=== PATIENT | male | born 1935 | race Caucasian/White ===

== ENCOUNTER 2022-06-26 09:42 | Outpatient (CLI) | payer OTHER | END 2022-06-26 09:43 | disposition EMS.NT | LOC: MERGE 09:42 → EMS 09:42 | DX: R03.0 Elevated blood-pressure reading, without diagnosis of hypertension (principal) ==

== ENCOUNTER 2022-07-01 17:05 | Outpatient (CLI) | payer MEDICARE | END 2022-07-01 17:06 | disposition critical access hospital (66) | LOC: EMS 17:05 | DX: R41.0 Disorientation, unspecified (principal); R53.83 Other fatigue; R53.1 Weakness; R11.2 Nausea with vomiting, unspecified | CPT/HCPCS: A0425; A0429 ==

== ENCOUNTER 2022-07-01 17:11 | Emergency (ER) | payer MEDICARE ==
[2022-07-01 17:42] LABS: BASOPHILS # (AUTO) 0.1 10^3/uL (0.0-0.1); BASOPHILS % (AUTO) 0.6 %; EOSINOPHILS # (AUTO) 0.1 10^3/uL (0.0-0.7); EOSINOPHILS % (AUTO) 1.3 %; HCT - HEMATOCRIT 26.2 % (42.0-52.0); HGB - HEMOGLOBIN 8.4 g/dL (14.0-18.0); LYMPHOCYTES # (AUTO) 0.7 10^3/uL (1.5-3.5); LYMPHOCYTES % (AUTO) 7.5 %; MEAN CORPUSCULAR HEMOGLOBIN 28.8 pg (27.0-31.0); MEAN CORPUSCULAR HGB CONC 32.1 g/dL (32.0-36.0); MEAN CORPUSCULAR VOLUME 89.7 fL (80.0-94.0); MEAN PLATELET VOLUME 10.8 fL (7.4-11.4); MONOCYTES # (AUTO) 0.9 10^3/uL (0.0-1.0); MONOCYTES % (AUTO) 10.2 %; NEUTROPHILS % (AUTO) 80.1 %; PLT - PLATELET COUNT 293 10^3/uL (130-450); RED BLOOD COUNT 2.92 10^6/uL (4.70-6.10); RED CELL DISTRIBUTION WIDTH 13.5 % (12.0-15.0); WHITE BLOOD COUNT 8.7 x10^3/uL (4.8-10.8)
--- NOTE | 2022-07-01 17:57 | ED Physician Documentation ---
History of Present Illness - Stated complaint Stated Complaint: WEAKNESS - Chief complaint Chief Complaint: Neuro - History obtained from History obtained from: Family, EMS - History of Present Illness Timing: How many days ago (12) Pain level max: 0 Pain level now: 0 - Additonal information Additional information: Patient is an 87-year-old male who is brought in by EMS and his family for altered mental status for the past 12 days. He reportedly fell on June 19, sustained a hip fracture and struck his head on the ground. Family states that they do not believe a head CT was performed. They state that he underwent a pinning of the right hip. They state that he has had intermittent confusion ever since the surgery. Waxing and waning mental status. No further falls that they are aware of. Review of Systems Unable to obtain: [place] PD PAST MEDICAL HISTORY - Past Medical History Past Medical History: Yes Other Past Medical History: bradycardia - Past Surgical History Past Surgical History: Yes Ortho: Other (R hip pinning) Cardiovascular: Pacemaker - Allergies Allergies/Adverse Reactions: Allergies Allergy/AdvReac Type Severity Reaction Status Date / Time No Known Drug Allergies Allergy Verified 07/01/22 17:22 PD ED PE NORMAL - Vitals Vital signs reviewed: Yes - General General: No acute distress, Well developed/nourished, Other (drowsy, arousable) - HEENT HEENT: Atraumatic, PERRL, Moist mucous membranes - Neck Neck: Supple, no meningeal sign, No bony TTP - Cardiac Cardiac: RRR, Strong equal pulses - Respiratory Respiratory: No respiratory distress, Clear bilaterally - Abdomen Abdomen: Soft, Non tender, Non distended - Back Back: No spinal TTP - Derm Derm: Warm and dry - Extremities Extremities: No edema, No calf tenderness / cord, Other (well healing incision to the R hip. no signs of infection.) - Neuro Neuro: Other (drowsy) Results - Vitals Vitals: Vital Signs - 24 hr 07/01/22 07/01/22 07/01/22 17:22 17:55 19:25 Temperature 36.4 C L Heart Rate 55 L 50 L 66 Respiratory 18 21 18 Rate Blood Pressure 177/69 H 160/64 H 160/102 H O2 Saturation 98 98 99 07/01/22 07/01/22 19:55 20:25 Temperature Heart Rate 66 66 Respiratory 18 18 Rate Blood Pressure 162/91 H 161/66 H O2 Saturation 99 100 Oxygen O2 Source Room air - EKG (time done) 1910 Rate: Rate (enter#) (66) Rhythm: NSR [place]: Normal Intervals: Prolonged [place] QRS: Normal Ischemia: Normal ST segments - Labs Labs: Laboratory Tests 07/01/22 07/01/22 07/01/22 17:37 17:37 17:50 WBC 8.7 RBC 2.92 L Hgb 8.4 L Hct 26.2 L MCV 89.7 MCH 28.8 MCHC 32.1 RDW 13.5 Plt Count 293 MPV 10.8 Neut # (Auto) 7.0 H Lymph # (Auto) 0.7 L [place] # (Auto) 0.9 Eos # (Auto) 0.1 Baso # (Auto) 0.1 Absolute Nucleated RBC 0.00 Nucleated RBC % 0.0 Sodium 125 L Potassium 7.9 H* Chloride 92 L Carbon Dioxide 16 L Anion Gap 17.0 H BUN 125 H* Creatinine 11.3 H* Estimated GFR (MDRD) 4 L Glucose 106 H Calcium 8.1 L Total Bilirubin 0.7 AST 15 ALT 20 Alkaline Phosphatase 67 Total Protein 6.3 L Albumin 3.4 Globulin 2.9 Albumin/Globulin Ratio 1.2 Lipase 36 Urine Color YELLOW Urine Clarity CLEAR Urine pH 6.5 Ur Specific [place] 1.010 Urine Protein NEGATIVE Urine Glucose (UA) NEGATIVE Urine Ketones NEGATIVE Urine Occult Blood NEGATIVE Urine Nitrite NEGATIVE Urine Bilirubin NEGATIVE Urine Urobilinogen 0.2 (NORMAL) Ur Leukocyte Esterase NEGATIVE Ur Microscopic Review NOT INDICATED Urine Culture Comments NOT INDICATED Nasal Adenovirus (PCR) Nasal B. parapertussis DNA (PCR) Nasal Coronavir 229E PCR Nasal Coronavir HKU1 PCR Nasal Coronavir NL63 PCR Nasal Coronavir OC43 PCR Nasal Enterovir/Rhinovir PCR Nasal Influenza B PCR Nasal Influenza A PCR Nasal Parainfluen 1 PCR Nasal Parainfluen 2 PCR Nasal Parainfluen 3 PCR Nasal Parainfluen 4 PCR Nasal RSV (PCR) Nasal B.pertussis DNA PCR Nasal C.pneumoniae (PCR) Janusz Human Metapneumo PCR Nasal M.pneumoniae (PCR) Nasal SARS-CoV-2 (PCR) 07/01/22 07/01/22 18:10 21:16 WBC RBC Hgb Hct MCV MCH MCHC RDW Plt Count MPV Neut # (Auto) Lymph # (Auto) [place] # (Auto) Eos # (Auto) Baso # (Auto) Absolute Nucleated RBC Nucleated RBC % Sodium 127 L Potassium 5.9 H Chloride 99 L Carbon Dioxide 17 L Anion Gap 11.0 BUN 101 H* Creatinine 8.9 H* Estimated GFR (MDRD) 6 L Glucose 109 H Calcium 8.2 L Total Bilirubin AST ALT Alkaline Phosphatase Total Protein Albumin Globulin Albumin/Globulin Ratio Lipase Urine Color Urine Clarity Urine pH Ur Specific [place] Urine Protein Urine Glucose (UA) Urine Ketones Urine Occult Blood Urine Nitrite Urine Bilirubin Urine Urobilinogen Ur Leukocyte Esterase Ur Microscopic Review Urine Culture Comments Nasal Adenovirus (PCR) NOT DETECTED Nasal B. parapertussis DNA (PCR) NOT DETECTED Nasal Coronavir 229E PCR NOT DETECTED Nasal Coronavir HKU1 PCR NOT DETECTED Nasal Coronavir NL63 PCR NOT DETECTED Nasal Coronavir OC43 PCR NOT DETECTED Nasal Enterovir/Rhinovir PCR NOT DETECTED Nasal Influenza B PCR NOT DETECTED Nasal Influenza A PCR NOT DETECTED Nasal Parainfluen 1 PCR NOT DETECTED Nasal Parainfluen 2 PCR NOT DETECTED Nasal Parainfluen 3 PCR NOT DETECTED Nasal Parainfluen 4 PCR NOT DETECTED Nasal RSV (PCR) NOT DETECTED Nasal B.pertussis DNA PCR NOT DETECTED Nasal C.pneumoniae (PCR) NOT DETECTED Janusz Human Metapneumo PCR NOT DETECTED Nasal M.pneumoniae (PCR) NOT DETECTED Nasal SARS-CoV-2 (PCR) NOT DETECTED - Rads (name of study) head ct Radiology: Final report received, See rad report abd/pel ct Radiology: Final report received, See rad report PD Medical Decision Making - ED course Complexity details: reviewed results, re-evaluated patient, considered differential, d/w patient, d/w family ED course: Patient had a significant amount of urinary retention. A Soares catheter was placed and approximately 2 L of urine were drained. Found to have of acute renal failure and uremia. Also hyperkalemic. No EKG changes. Abdomen pelvis CT does show a left-sided hydronephrosis, but no significant abnormalities otherwise. This was done noncontrast due to his renal function. The patient was started on IV fluids as well. His mental status significantly improved. He is awake, talking and the daughter states he is much more like himself. Repeat laboratory testing shows a downtrending creatinine, downtrending BUN and downtrending potassium. There are no beds available in the hospital here. There are no beds available for transfer. It does appear that he had a creatinine on June 22 that was normal at 0.7. Likely that the urinary obstruction led to the renal failure, expect that this will improve now that the obstruction is relieved. We will keep the patient in the emergency department on IV fluids and continue care on telemetry inpatient bed is found where he improves well enough to go home. Patient signed out to the oncoming emergency department physician. His recent postop wound on the right hip does not appear infected. This document was made in part using voice recognition software. While efforts are made to proofread this document, sound alike and grammatical errors may occur. Departure - Departure Clinical Impression: Uremia, Hyperkalemia, Urinary obstruction Acute renal failure Qualifiers: Acute renal failure type: unspecified Qualified Code(s): N17.9 - Acute kidney failure, unspecified Condition: Stable
[2022-07-01 18:01] LABS: BILIRUBIN,URINE NEGATIVE (NEGATIVE); GLUCOSE, URINE (UA) NEGATIVE (NEGATIVE); KETONES,URINE (UA) NEGATIVE (NEGATIVE); LEUKOCYTE ESTERASE, URINE NEGATIVE (NEGATIVE); NITRITE,URINE NEGATIVE (NEGATIVE); OCCULT BLOOD,URINE NEGATIVE (NEGATIVE); PH,URINE 6.5 PH (5.0-7.5); PROTEIN,URINE NEGATIVE (NEGATIVE); UROBILINOGEN,URINE 0.2 (NORMAL) E.U./dL (NORMAL)
[2022-07-01 18:14] LABS: ALBUMIN 3.4 g/dL (3.2-5.5); ALBUMIN/GLOBULIN RATIO 1.2 (1.0-2.2); BILIRUBIN,TOTAL 0.7 mg/dL (0.2-1.0); CALCIUM 8.1 mg/dL (8.5-10.3); TOTAL PROTEIN 6.3 g/dL (6.7-8.2)
[2022-07-01 18:17] LABS: CLARITY,URINE CLEAR (CLEAR)
[2022-07-01 18:18] LABS: CREATININE 11.3 mg/dL (0.6-1.2); POTASSIUM 7.9 mmol/L (3.5-5.0)
[2022-07-01] MEDS ORDERED: DEXTROSE 50% ABBOJECT 25 GM/50 ML SYRINGE IVP STA (18:21)
[2022-07-01] MEDS ORDERED: INSULIN REGULAR HUMAN 100 UNIT/1 ML 10 ML MDV SUBQ STA (18:21)
[2022-07-01] MEDS ORDERED: SODIUM CHLORIDE 0.9% 1,000 ML IV STA ×3 (18:22)
[2022-07-01] MEDS ORDERED: SODIUM CHLORIDE 0.9% 500 ML IV STA (18:22)
--- NOTE | 2022-07-01 18:37 | CT Report ---
PROCEDURE: HEAD WO INDICATIONS: fall, head injury 2 weeks ago, cont aloc TECHNIQUE: Noncontrast 4.5 mm thick angled axial sections acquired from the foramen magnum to the vertex. For r adiation dose reduction, the following was used: automated exposure control, adjustment of mA and/or kV according to patient size. COMPARISON: None. FINDINGS: Image quality: Good. CSF spaces: Basal cisterns are patent. No extra-axial fluid collections. Lateral ventricles are enl arged. Brain: No midline shift. No intracranial masses or hemorrhage. Basal ganglia calcifications. No are a of hypodensity in a vascular distribution to suggest acute infarction. There is periventricular hyp odensity consistent with chronic microvascular ischemic disease. Skull and face: Calvarium and visualized facial bones are intact, without suspicious lesions. Sinuses: Visualized sinuses and mastoids are clear. IMPRESSION: No acute intracranial hemorrhage. Lateral ventricles are enlarged. Chronic microvascular ischemic disease. Reviewed by: Yariel Henao MD on 07/01/2022 6:36 PM PST Approved by: Yariel Henao MD on 07/01/2022 6:36 PM PST Station ID: [id number]
--- NOTE | 2022-07-01 19:45 | CT Report ---
PROCEDURE: ABDOMEN/PELVIS WO INDICATIONS: urinary retention, acute renal failure TECHNIQUE: Noncontrast 5 mm thick sections acquired from the diaphragms to the symphysis. 5 mm coronal and sagi ttal reformats were then performed. For radiation dose reduction, the following was used: automated exposure control, adjustment of mA and/or kV according to patient size. COMPARISON: FINDINGS: None. Image quality: Excellent. Evaluation of the solid parenchymal organs is limited without IV contrast . ABDOMEN: Lung bases: Small bilateral pleural effusions. Pacemaker leads. Solid organs: Liver and spleen are normal in size. Gallbladder is unremarkable. Pancreas is normal in contours. No adrenal nodules. Kidneys are normal in size. No kidney stones demonstrated. Mild l eft hydronephrosis. Peritoneum and bowel: No small bowel obstruction. Prominent stool the colon. Normal appendix. No free fluid or air. Nodes and vessels: No retroperitoneal or mesenteric adenopathy by size criteria. Aorta and inferior vena cava are normal in caliber. Moderate calcified plaque. Miscellaneous: No ventral hernias. PELVIS: Genitourinary: Bladder is decompressed with Soares catheter. Calcification near the Soares catheter at the prostatic urethra measuring 2 mm, (3/80). Miscellaneous: No inguinal hernias or adenopathy. Bones: No suspicious bony lesions. Right hip fixation. No vertebral body compression fractures. IMPRESSION: 1. Mild left kidney hydronephrosis. 2. No kidney stones. 3. Bladder is decompressed with Soares catheter. There is a 2 mm calcification adjacent to the Soares c atheter at the prostatic urethra. It is uncertain if this is within the urethra or prostate. Clinical significance is uncertain. 4. Small bilateral pleural effusions. Reviewed by: Yariel Henao MD on 07/01/2022 7:44 PM PST Approved by: Yariel Henao MD on 07/01/2022 7:44 PM PST Station ID: [id number]
[2022-07-01 20:38] LABS: B. PARAPERTUSSIS- RESP PCR PAN NOT DETECTED; B. PERTUSSIS- RESP PCR PANEL NOT DETECTED; C. PNEUMONIAE- RESP PCR PANEL NOT DETECTED; CORONAVIRUS 229E-RESP PCR NOT DETECTED; CORONAVIRUS HKU1-RESP PCR NOT DETECTED; CORONAVIRUS NL63-RESP PCR NOT DETECTED; CORONAVIRUS OC43-RESP PCR NOT DETECTED; HUMAN METAPNEUMOVIRUS NOT DETECTED; INFLUENZA A- RESP PCR PANEL NOT DETECTED; INFLUENZA B - RESP PCR PANEL NOT DETECTED; M. PNEUMONIAE- RESP PCR PANEL NOT DETECTED; PARAINFLUENZA VIRUS 1 NOT DETECTED; PARAINFLUENZA VIRUS 2 NOT DETECTED; PARAINFLUENZA VIRUS 3 NOT DETECTED; PARAINFLUENZA VIRUS 4 NOT DETECTED; RHINOVIRUS/ENTEROVIRUS NOT DETECTED; RSV- RESP PCR PANEL NOT DETECTED; SARS-CoV-2 -RESP PCR PANEL NOT DETECTED
[2022-07-01 22:04] LABS: CALCIUM 8.2 mg/dL (8.5-10.3); POTASSIUM 5.9 mmol/L (3.5-5.0)
[2022-07-01 22:06] LABS: CREATININE 8.9 mg/dL (0.6-1.2)
[2022-07-02] MEDS ORDERED: ACETAMINOPHEN 500 MG TABLET PO PRN (04:26)
[2022-07-02] MEDS ORDERED: ONDANSETRON 4 MG/2 ML VIAL IVP PRN (04:26)
[2022-07-02] MEDS: SODIUM CHLORIDE 0.9% 1,000 ML IV SCH ×2 (05:11→13:03)
[2022-07-02 05:18] LABS: BASOPHILS % (AUTO) 0.4 %; EOSINOPHILS # (AUTO) 0.1 10^3/uL (0.0-0.7); EOSINOPHILS % (AUTO) 1.8 %; HCT - HEMATOCRIT 24.4 % (42.0-52.0); HGB - HEMOGLOBIN 8.1 g/dL (14.0-18.0); LYMPHOCYTES # (AUTO) 0.8 10^3/uL (1.5-3.5); LYMPHOCYTES % (AUTO) 11.1 %; MEAN CORPUSCULAR HEMOGLOBIN 29.2 pg (27.0-31.0); MEAN CORPUSCULAR HGB CONC 33.2 g/dL (32.0-36.0); MEAN CORPUSCULAR VOLUME 88.1 fL (80.0-94.0); MEAN PLATELET VOLUME 9.8 fL (7.4-11.4); MONOCYTES # (AUTO) 0.8 10^3/uL (0.0-1.0); MONOCYTES % (AUTO) 10.5 %; NEUTROPHILS # (AUTO) 5.4 10^3/uL (1.5-6.6); NEUTROPHILS % (AUTO) 75.9 %; PLT - PLATELET COUNT 304 10^3/uL (130-450); RED BLOOD COUNT 2.77 10^6/uL (4.70-6.10); RED CELL DISTRIBUTION WIDTH 13.6 % (12.0-15.0); WHITE BLOOD COUNT 7.1 x10^3/uL (4.8-10.8)
[2022-07-02 05:29] LABS: CALCIUM 8.7 mg/dL (8.5-10.3); CREATININE 5.1 mg/dL (0.6-1.2); POTASSIUM 5.2 mmol/L (3.5-5.0)
[2022-07-02] MEDS ORDERED: PANTOPRAZOLE 40 MG TABLET PO SCH (07:00)
--- NOTE | 2022-07-02 08:24 | ED Physician Documentation ---
ED Addendum - Addendum Addendum: 07/02/22 08:[address] Perez at shift change. 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 Now with a Soares in place he is getting IV fluids and drinking, his creatinine is rapidly improving. At this point not quite good enough to go home with a catheter in place but may be this afternoon. He is quite uncomfortable, he had a recent hip fracture and now is on a gurney so we will get him a hospital bed his who is at the bedside really does not want him to have anything stronger than Tylenol as when he had his recent hip surgery all narcotics seem to make him delusional. 07/02/22 14:00 At this juncture his indices have improved significantly, and he is drinking fluids. He is eager for discharge as is his . They were counseled on Soares care and the need for urologic follow-up and for easy access to oral fluids and pushing oral fluids. Disposition: Discharged home Condition: Stable Diagnosis: 1. Obstructive uropathy 2. Acute renal failure 3. Hyperkalemia
[2022-07-02 13:27] VITALS: BP 146/90
[2022-07-02 13:43] LABS: CALCIUM 8.5 mg/dL (8.5-10.3); CREATININE 3.7 mg/dL (0.6-1.2); POTASSIUM 5.1 mmol/L (3.5-5.0)
== END 2022-07-02 14:39 | disposition home or self-care (01) ==
LOC: ED 17:11
DX: N17.9 Acute kidney failure, unspecified (principal); N13.30 Unspecified hydronephrosis; E87.5 Hyperkalemia; Z20.822 Contact with and (suspected) exposure to COVID-19
CPT/HCPCS: 36415; 70450; 74176; 80048; 80053; 81003; 83690; 85025; 87633; 93005; 96361; 96374; 99281; 99284; A9270; J1815; 81001; 87086

== ENCOUNTER 2022-07-03 13:33 | Outpatient (CLI) | payer MEDICARE | END 2022-07-03 13:34 | disposition critical access hospital (66) | LOC: EMS 13:33 | DX: T83.9XXA Unspecified complication of genitourinary prosthetic device, implant and graft, initial encounter (principal) | CPT/HCPCS: A0425; A0429 ==

== ENCOUNTER 2022-07-03 13:44 | Emergency (ER) | payer MEDICARE ==
[2022-07-03 13:50] VITALS: BP 154/79
--- NOTE | 2022-07-03 13:54 | ED Physician Documentation ---
PD HPI ABD PAIN - Stated complaint Stated Complaint: ZIMMER OUT - Chief complaint Chief Complaint: Abd Pain - History obtained from History obtained from: Patient - Additional information Additional information: 87-year-old gentleman recently had acute urinary retention and had a Zimmer placed. Zimmer output dropped suddenly an hour ago and he presents for evaluation of that. He has no complaints. Review of Systems Unable to obtain: D[facility] PD PAST MEDICAL HISTORY - Past Surgical History Past Surgical History: Yes Ortho: Other (R hip pinning) Cardiovascular: Pacemaker - Present Medications Home Medications: Ambulatory Orders Medication Instructions Recorded Confirmed Aspirin [Vazalore] 81 mg PO BID 07/02/22 07/02/22 Famotidine 40 mg PO DAILY 07/02/22 07/02/22 - Allergies Allergies/Adverse Reactions: Allergies Allergy/AdvReac Type Severity Reaction Status Date / Time No Known Drug Allergies Allergy Verified 07/03/22 13:49 PD ED PE NORMAL - Vitals Vital signs reviewed: Yes - General General: Other (He is confused but I had seen him yesterday and he was confused yesterday.) - Abdomen Abdomen: Normal bowel sounds, Soft, Non tender - Male Male : Other (Zimmer in place with no output in the bag. I flushed it with sterile saline and there was a small clot that dislodged and then the Zimmer flowed freely.) - Extremities Extremities: No edema - Neuro Verbal: Confused Results - Vitals Vitals: Vital Signs - 24 hr 07/03/22 13:46 Temperature 36.1 C L Heart Rate 60 Respiratory 16 Rate Blood Pressure 154/79 H O2 Saturation 98 Oxygen O2 Source Room air PD Medical Decision Making - ED course ED course: 87-year-old gentleman with recent urinary obstruction presents with a blocked Zimmer catheter. I irrigated it at bedside and then a small clot was dislodged and then it was flowing freely. Departure - Departure Disposition: 01 Home, Self Care Clinical Impression: Complication, blocked Zimmer catheter Condition: Good Record reviewed to determine appropriate education?: Yes Instructions: ED Catheter Care Zimmer Comments: There was a small clot in the catheter, I was able to flush this clear and the Zimmer is working again. Return for new or worsening symptoms. Otherwise follow the follow-up instructions given yesterday. Discharge Date/Time: 07/03/22 14:15
== END 2022-07-03 14:15 | disposition home or self-care (01) ==
LOC: EDUNIT# → ED 13:44
DX: R33.9 Retention of urine, unspecified (principal); T83.091A Other mechanical complication of indwelling urethral catheter, initial encounter
CPT/HCPCS: 99282; 99283

== ENCOUNTER 2024-08-10 12:27 | Inpatient (IN) ==
--- NOTE | 2024-08-10 12:31 | ED Physician Documentation ---
History of Present Illness Stated complaint Stated Complaint: HIP/KNEE PX, GLF Chief complaint Chief Complaint: Trauma Ext History obtained from History obtained from: Patient and EMS Additonal information Additional information: This is a very healthy for age 89-year-old gentleman who fell a few days ago onto his left hip. He was walking and bearing weight but it is much worse today and he cannot walk now. No other injuries. Meds/Allgy Home Medications Ambulatory Orders Medication Instructions Recorded Confirmed aspirin 81 mg capsule (Vazalore) 81 mg PO BID 07/02/22 07/02/22 famotidine 40 mg tablet 40 mg PO DAILY 07/02/22 07/02/22 Allergies Allergies Allergy/AdvReac Type Severity Reaction Status Date / Time No Known Drug Allergies Allergy Verified 08/10/24 12:36 [facility] Medical History Medical History (Updated 08/10/24 @ 14:10 by Himanshu Mujica DNP) Hypertension Social History Social History Relationship: Do you feel safe in your home environment?: Yes Suffered physical, verbal, emotional, or financial abuse?: No Exam Constitutional normal general appearance and no apparent distress Neck/C-Spine cervical spine nontender and cervical full ROM noted Respiratory normal respiratory effort and clear to auscultation bilaterally Cardiovascular normal heart rate noted and regular rhythm noted Gastrointestinal abdomen soft to palpation and nontender to palpation Extremities He is holding the hip flexed and externally rotated. He is exquisitely tender about the left hip and has severe pain with internal and external rotation. Neurology GCS 15 Results Vitals Vitals: Vital Signs - 24 hr 08/10/24 12:36 08/10/24 12:51 08/10/24 12:54 Temperature 36.8 C Temperature Source Tympanic Pulse Rate 72 67 Respiratory Rate 18 18 Blood Pressure 152/80 H 153/71 H O2 Saturation 98 97 O2 Source Room air Room air Pain Intensity 8 6 6 Oxygen O2 Source Room air EKG (time done) 1258: EKG releavant findings:: EKG personally interpreted by author of this note. Relevant findings are: Normal sinus rhythm with a rate of 66. He does have a very long NC interval (376 ms) with peaked T waves throughout and inferior Q waves. Compared with most recent prior EKG on the chart, 07/01/2022, Q waves are old, the T waves are similar but have progressed. Labs Labs: Laboratory Tests 08/10/24 08/10/24 12:40 13:12 WBC 10.5 RBC 4.15 L Hgb 12.3 L Hct 37.9 L MCV 91.3 MCH 29.6 MCHC 32.5 RDW 13.0 Plt Count 146 MPV 11.6 H Neut # (Auto) 8.6 H Lymph # (Auto) 0.6 L [place] # (Auto) 1.2 H Eos # (Auto) 0.1 Baso # (Auto) 0.0 Absolute Nucleated RBC 0.00 Nucleated RBC % 0.0 PT 14.6 H INR 1.4 H Sodium 134 L Potassium 5.0 H Chloride 106 Carbon Dioxide 22 Anion Gap 6.0 BUN 40 H Creatinine 1.2 Estimated GFR (MDRD) 57 L Glucose 128 H Calcium 8.8 Total Bilirubin 1.1 H AST 28 ALT 16 Alkaline Phosphatase 48 Total Protein 7.1 Albumin 4.0 Globulin 3.1 Albumin/Globulin Ratio 1.3 Blood Type A NEGATIVE Blood Type Recheck A NEGATIVE Antibody Screen NEGATIVE PD Medical Decision Making ED course ED course: 89-year-old gentleman fell a few days ago onto his left hip and it hurts a lot more today and he cannot walk. He has femoral neck fracture on x-ray. Spoke with Dr. Maciel and he will see the patient and plan for operative repair. Requests a CT for operative planning and this is ordered. Spoke with ZARA Mujica for admission at 1:05 PM. He was medicated here with Dilaudid. The patient and family are counseled as to the diagnosis and need for admission. This document was made in part using voice recognition software, while efforts are made to proofread this document, sound alike an grammatical errors may occur. Discharge Plan Discharge Patient Disposition: 66 [facility] DC/Xfer Condition: Serious Clinical Impression: Closed fracture of left hip Qualifiers: Encounter type: initial encounter Qualified Code(s): S72.002A - Fracture of unspecified part of neck of left femur, initial encounter for closed fracture Interventions: ED Admission Assessment Last Done: 08/10/24 14:35
[2024-08-10 12:46] LABS: BASOPHILS % (AUTO) 0.3 %; EOSINOPHILS # (AUTO) 0.1 10^3/uL (0.0-0.7); EOSINOPHILS % (AUTO) 0.6 %; HCT - HEMATOCRIT 37.9 % (42.0-52.0); HGB - HEMOGLOBIN 12.3 g/dL (14.0-18.0); LYMPHOCYTES # (AUTO) 0.6 10^3/uL (1.5-3.5); LYMPHOCYTES % (AUTO) 5.3 %; MEAN CORPUSCULAR HEMOGLOBIN 29.6 pg (27.0-31.0); MEAN CORPUSCULAR HGB CONC 32.5 g/dL (32.0-36.0); MEAN CORPUSCULAR VOLUME 91.3 fL (80.0-94.0); MEAN PLATELET VOLUME 11.6 fL (7.4-11.4); MONOCYTES # (AUTO) 1.2 10^3/uL (0.0-1.0); MONOCYTES % (AUTO) 11.4 %; NEUTROPHILS # (AUTO) 8.6 10^3/uL (1.5-6.6); PLT - PLATELET COUNT 146 10^3/uL (130-450); RED BLOOD COUNT 4.15 10^6/uL (4.70-6.10); WHITE BLOOD COUNT 10.5 x10^3/uL (4.8-10.8)
[2024-08-10 12:52] LABS: INR 1.4 (0.8-1.2); PT - PROTHROMBIN TIME 14.6 secs (9.9-12.6)
[2024-08-10] MEDS: HYDROmorphone 1 MG/ML CARPUJECT IVP STA (12:54)
[2024-08-10 13:19] LABS: ALBUMIN/GLOBULIN RATIO 1.3 (1.0-2.2); BILIRUBIN,TOTAL 1.1 mg/dL (0.2-1.0); CALCIUM 8.8 mg/dL (8.5-10.3); CREATININE 1.2 mg/dL (0.6-1.3); TOTAL PROTEIN 7.1 g/dL (6.4-8.9)
--- NOTE | 2024-08-10 13:46 | XRAY Report ---
PROCEDURE: XR Hip w/Pelvis 2-3V LT INDICATIONS: hip frx TECHNIQUE: An AP view the pelvis and a crosstable lateral view of the hip were acquired. COMPARISON: None. FINDINGS: Bones: Impacted left femoral neck fracture with varus angulation. No dislocation. Right hip orthoped ic hardware. Soft tissues: No suspicious soft tissue calcifications or masses. IMPRESSION: Impacted left femoral neck fracture with varus angulation. Reviewed by: Finn Crisostomo MD on 08/10/2024 1:45 PM PST Approved by: Finn Crisostomo MD on 08/10/2024 1:45 PM PST Station ID: [id number]
[2024-08-10] MEDS: D5.45NS W/20 MEQ KCL 1,000 ML IV STA (14:04)
--- NOTE | 2024-08-10 14:04 | CT Report ---
PROCEDURE: CT Lower Extremity LT WO INDICATIONS: hip frx TECHNIQUE: Noncontrast 3-mm axial sections acquired from the distal tibial shaft to the talar dome, with coronal and sagittal reformats. For radiation dose reduction, the following was used: automated exposure c ontrol, adjustment of mA and/or kV according to patient size. COMPARISON: Pelvic and hip radiograph on the same day. FINDINGS: Image quality: Excellent. Bones: As seen on early left hip radiograph, there is an acute oblique and slightly comminuted fract ure involving subcapital region of left femoral neck with superior and anterior displacement of left proximal femur in relation to femoral head. No other fracture or dislocation is seen. Moderate left h ip joint osteoarthritic changes are noted. No CT evidence of avascular necrosis of femoral head. Visu alized lower lumbar spine shows no acute vertebral body compression fracture. No suspicious bony lesi ons. Soft tissues: There is no pelvic free fluid of free air. No abnormal bowel wall thickening. Bladder wall thickness is normal. No inguinal lymphadenopathy by size criteria. Soft tissue swelling and edema surrounding left femoral neck fracture site is seen. Small to moderate left hip joint effusion, no calcified intra-articular loose bodies. No large soft tissue mass or stefan inable fluid collection. No abnormal soft tissue calcifications. Impression: 1. Slightly comminuted and displaced fracture involving subcapital region of left femoral neck as de scribed above. No other fracture or dislocation. No acute vertebral body compression fracture. 2. Moderate left hip joint osteoarthritis. No evidence of avascular necrosis of femoral head. 3. Soft tissue swelling around left femoral neck fracture site with small amount of left hip joint fl uid. No calcified intra-articular loose bodies or abnormal soft tissue calcifications. No soft tissue mass or drainable fluid collection. No large soft tissue hematoma. 4. No peritoneal free fluid of free air. Reviewed by: Issac Nagel MD on 08/10/2024 2:03 PM PST Approved by: Issac Nagel MD on 08/10/2024 2:03 PM PST Station ID: [id number]
--- NOTE | 2024-08-10 14:06 | HISTORY & PHYSICAL EXAMINATION ---
Chief Complaint Chief Complaint Chief Complaint: Hip pain History of Present Illness Admitted From Admitted From:: Home with History Obtained From History obtained from: Interview with patient and at bedside Exam Limitations: Patient received narcotic pain medicine prior to my arrival History of Present Illness HPI Comment/Other: 89-year-old male with history of hypertension who slipped and fell on the ice a few days ago. He was initially able to walk on it, but cannot walk now. He reports pain and deformity in his left leg. In the ER, lower extremity CT was performed which showed slightly comminuted and displaced fracture in the left femoral neck as well as osteoarthritis and soft tissue swelling. Orthopedic surgery was contacted by ER provider, and they recommended admission to medicine for hip fracture Meds/Allgy Home Medications Ambulatory Orders Medication Instructions Recorded Confirmed aspirin 81 mg capsule (Vaz[place]) 81 mg PO BID 07/02/22 07/02/22 famotidine 40 mg tablet 40 mg PO DAILY 07/02/22 07/02/22 Allergies Allergies Allergy/AdvReac Type Severity Reaction Status Date / Time No Known Drug Allergies Allergy Verified 08/10/24 12:36 [facility] Medical History Medical History (Updated 08/10/24 @ 14:10 by Himanshu Mujica DNP) Hypertension Social History Social History Do you feel safe in your home environment?: Yes Suffered physical, verbal, emotional, or financial abuse?: No Review of Systems Status of ROS: 10 or more systems reviewed and unremarkable except as noted in history and below Constitutional Denies: Fever or Chills Cardiovascular Denies: Irregular heart rate, chest pain, palpitations or shortness of breath with exertion Respiratory Denies: Shortness of breath Gastrointestinal Denies: Abdominal pain Musculoskeletal Reports: Other (Pain in left hip) Neurological Denies: General weakness Exam Constitutional normal general appearance and no apparent distress HENMT normocephalic and head/scalp atraumatic Eyes PERRL Neck/C-Spine visual inspection normal Lymph no lymphadenopathy noted Chest inspection of chest normal Respiratory breath sounds equal bilaterally Cardiovascular normal heart rate noted and murmur noted Gastrointestinal abdomen normal to inspection Genitourinary no CVA tenderness Extremities Left leg shortened Neurology GCS 15 Psychiatry oriented x3 Skin skin color normal Conclusion/Plan Problem List (1) Closed fracture of left hip: Plan: Ortho consulted by ER provider Scheduled Tylenol As needed oxycodone PT/OT N.p.o. after midnight Qualifiers: Encounter type: initial encounter Qualified Code(s): S72.002A - Fracture of unspecified part of neck of left femur, initial encounter for closed fracture (2) Hypertension: Plan: Restart home dose lisinopril after pharmacy review Plan Placed in observation Full code is his surrogate decision maker Lab Results Lab results reviewed: Yes 08/10/24 12:40 08/10/24 12:40 Core Measures Anticipated LOS I expect patient to be DC'd or transferred within 96 hours.: Yes DVT/VTE - Prophylaxis VTE/DVT Prophylaxis med ordered at admit?: Yes
[2024-08-10] MEDS ORDERED: ONDANSETRON 4 MG/2 ML VIAL IVP PRN (14:50)
[2024-08-10] MEDS ORDERED: ONDANSETRON ODT 4 MG TABLET TL PRN (14:50)
[2024-08-10] MEDS: ACETAMINOPHEN 500 MG TABLET PO SCH (15:25)
--- NOTE | 2024-08-10 15:57 | PHARMACY PROGRESS NOTE ---
Best Possible Medication History Admit Date and Time: 08/10/24 1400 Home Medications Medication Instructions Recorded Confirmed Type lisinopril 5 mg tablet 5 mg PO DAILY 08/10/24 08/10/24 History multivitamin (Daily Multi-Vitamin 1 tab PO DAILY 08/10/24 08/10/24 History tablet) Processed by: Pharmacy Medications reviewed in ED?: No Medication History completed: Yes Patient Interview: Completed Secondary Source(s): Spouse/Significant other and Insurance records [facility] Statement: As the person ultimately responsible for medication therapy, providers are able to order a medication from an existing home medication list in [facility] via the "Reconcile Routine" prior to Confirmation of that medication by pc support specialist. Such practice is discouraged except when the physician, in their clinical judgment, deems that a medical need exists for a medication without regard to previous use.
[2024-08-10] MEDS: SODIUM CHLORIDE FLUSH 0.9% 10 ML SYRINGE IVP SCH (18:18)
--- NOTE | 2024-08-10 21:18 | PREOP HISTORY & PHYSICAL ---
Surgical History & Physical Chief Complaint/HPI History of Present Illness: CC: LEFT Hip Femoral Neck Fracture HPI: 89yo M presents to the emergency department on August 10, 2024 for ongoing left hip pain. He reports that he had a slip on ice and sustained a ground-level fall on August 06, 2024 while walking. He had immediate pain however was able to stand up and walk approximately quarter mile back to his house. He had ongoing pain and stiffness and thought he just sprained a muscle. However his hip pain progressed and he then presented to the emergency department. Upon radiographs they demonstrated that he had a left femoral neck fracture that has not displaced. Orthopedics was then consulted. On evaluation he reports minimal left hip pain while at rest. He also has a significant history of having a right inner troches fracture that was fixed with an intramedullary nail. He still has not completely recovered from the right hip fracture and has weakness on the right side. He lives at home with his and is a community ambulator. Home Meds and Allergies Active Medications Generic Name Dose Route Start Last Admin Trade Name Freq PRN Reason Stop Dose Admin Acetaminophen 1,000 mg 08/10/24 14:00 08/10/24 15:25 Acetaminophen 500 Mg Tablet PO 1,000 mg TID [facility] Administration Aspirin 81 mg 08/11/24 09:00 Aspirin Ec 81 Mg Tablet PO DAILY [facility] Enoxaparin Sodium 40 mg 08/12/24 09:00 Enoxaparin 40 Mg/0.4 Ml Syringe SUBQ DAILY [facility] Famotidine 40 mg 08/11/24 09:00 Famotidine 20 Mg Tablet PO DAILY [facility] Ondansetron HCl 4 mg 08/10/24 14:50 Ondansetron Odt 4 Mg Tablet TL Q6HR PRN Nausea / Vomiting Ondansetron HCl 4 mg 08/10/24 14:50 Ondansetron 4 Mg/2 Ml Vial IVP Q6HR PRN Nausea / Vomiting Oxycodone HCl 5 mg 08/10/24 14:50 Oxycodone 5 Mg Tablet PO Q4HR PRN Pain 5 to 7 Sodium Chloride 10 ml 08/10/24 14:50 Sodium Chloride Flush 0.9% 10 Ml Syringe IVP PRN PRN NEEDED PER PROVIDER ORDERS Sodium Chloride 10 ml 08/10/24 17:00 08/10/24 18:18 Sodium Chloride Flush 0.9% 10 Ml Syringe IVP 10 ml 0100,0900,1700 [facility] Administration lisinopril 5 mg tablet 5 mg PO DAILY 08/10/24 multivitamin (Daily Multi-Vitamin tablet) 1 tab PO DAILY 08/10/24 Allergies Allergy/AdvReac Type Severity Reaction Status Date / Time No Known Drug Allergies Allergy Verified 08/10/24 12:36 Vital Signs O2 Saturation: 99 Patient Review Patient Review Pertinent Tests Reviewed [facility] Medical History Medical History (Updated 08/10/24 @ 14:10 by Himanshu Mujica DNP) Hypertension Social History Social History Smoking Status: Former smoker Second hand tobacco smoke exposure: Yes Do you dip or chew tobacco?: No Do you vape?: No Patient requests smoking cessation consult: No Initiate information on smoking cessation: No Relationship: Level: Dependent Home Mobility Equipment: Walker and Wheeled walker Do you feel safe in your home environment?: Yes Suffered physical, verbal, emotional, or financial abuse?: No POLST Patient has POLST: No Exam Exam LEFT Hip: Inspection: No erythema, swelling, bruising, atrophy. ROM: Deferred due to known fracture Neurovascular exam: 11/08 ta/gc/ehl; SILT s/s/sp/dp/t, 2+ dp Imaging: Left hip x-rays on demonstrate a rotated and displaced femoral neck fracture. Assessment & Plan Assessment & Plan Assessment & Plan: PLAN: Admit to medicine Nonweightbearing N.p.o. at midnight Left hip fracture operative fixation on August 11, 2024 Will likely stay overnight and potentially require SNF placement He will start aspirin daily for 6 weeks on postop day 1 The patient had the treatment plan explained, questions answered and seemed satisfied with the plan. There were no apparent barriers to communication. The documentation in this note may have been entered with the assistance of computer voice recognition and dictation software. Therefore, it may contain unintended errors in text, spelling, punctuation, or grammar. Ranjan Maciel MD Orthopedic Surgeon
[2024-08-10] MEDS: oxyCODONE 5 MG TABLET PO PRN (23:46)
[2024-08-11 05:51] LABS: BASOPHILS % (AUTO) 0.4 %; EOSINOPHILS # (AUTO) 0.2 10^3/uL (0.0-0.7); EOSINOPHILS % (AUTO) 2.8 %; HCT - HEMATOCRIT 33.1 % (42.0-52.0); HGB - HEMOGLOBIN 11.2 g/dL (14.0-18.0); LYMPHOCYTES # (AUTO) 1.2 10^3/uL (1.5-3.5); MEAN CORPUSCULAR HEMOGLOBIN 30.7 pg (27.0-31.0); MEAN CORPUSCULAR HGB CONC 33.8 g/dL (32.0-36.0); MEAN CORPUSCULAR VOLUME 90.7 fL (80.0-94.0); MEAN PLATELET VOLUME 11.4 fL (7.4-11.4); MONOCYTES # (AUTO) 1.4 10^3/uL (0.0-1.0); MONOCYTES % (AUTO) 16.8 %; NEUTROPHILS # (AUTO) 5.3 10^3/uL (1.5-6.6); NEUTROPHILS % (AUTO) 64.8 %; PLT - PLATELET COUNT 141 10^3/uL (130-450); RED BLOOD COUNT 3.65 10^6/uL (4.70-6.10); RED CELL DISTRIBUTION WIDTH 13.2 % (12.0-15.0); WHITE BLOOD COUNT 8.1 x10^3/uL (4.8-10.8)
[2024-08-11 06:00] LABS: CALCIUM 8.6 mg/dL (8.5-10.3); CREATININE 1.1 mg/dL (0.6-1.3); POTASSIUM 4.4 mmol/L (3.5-4.5)
[2024-08-11] MEDS: FAMOTIDINE 20 MG TABLET PO SCH (09:13)
[2024-08-11] MEDS: ASPIRIN EC 81 MG TABLET PO SCH ×2 (09:13→21:12)
[2024-08-11 10:05] LABS: % IRON SATURATION 14 % (20-50); IRON 31 ug/dL (50-212); TOTAL IRON BINDING CAPACITY 221 ug/dL (250-450); TRANSFERRIN 158 mg/dL (203-362)
[2024-08-11] MEDS ORDERED: BUPIVACAINE 0.25% PF 10 ML VIAL ONE (12:55)
[2024-08-11] MEDS ORDERED: VANCOMYCIN 1 GM VIAL ONE (12:55)
[2024-08-11] MEDS ORDERED: PROPOFOL 500 MG/50 ML 500 MG/50 ML VIAL ONE ×2 (13:00→14:20)
[2024-08-11] MEDS ORDERED: MIDAZOLAM 2 MG/2 ML VIAL ONE (13:12)
--- NOTE | 2024-08-11 13:15 | ANESTHESIA PROCEDURE NOTE ---
Pre-Anesthesia VS, & Labs Diagnosis Surgical Diagnosis:: Fx L hip Procedure Procedure: L hip hemiathroplasty Vitals Vital Signs: Temp Pulse Resp BP Pulse Ox 36.7 C 59 L 18 148/71 H 96 08/11/24 09:30 08/11/24 09:30 08/11/24 09:30 08/11/24 09:30 08/11/24 09:30 NPO NPO: >8 hours Lab Results Current Lab Results: Laboratory Tests 08/11/24 05:17: WBC 8.1, RBC 3.65 L, Hgb 11.2 L, Hct 33.1 L, MCV 90.7, MCH 30.7, MCHC 33.8, RDW 13.2, Plt Count 141, MPV 11.4, Neut # (Auto) 5.3, Lymph # (Auto) 1.2 L, Haralson # (Auto) 1.4 H, Eos # (Auto) 0.2, Baso # (Auto) 0.0, Absolute Nucleated RBC 0.00, Nucleated RBC % 0.0, Sodium 136, Potassium 4.4, Chloride 108, Carbon Dioxide 23, Anion Gap 5.0 L, BUN 41 H, Creatinine 1.1, Estimated GFR (MDRD) 63 L, Glucose 96, Calcium 8.6, Iron 31 L, TIBC 221 L, % Saturation 14 L, Transferrin 158 L 08/10/24 13:12: Blood Type Recheck A NEGATIVE 08/10/24 12:40: WBC 10.5, RBC 4.15 L, Hgb 12.3 L, Hct 37.9 L, MCV 91.3, MCH 29.6, MCHC 32.5, RDW 13.0, Plt Count 146, MPV 11.6 H, Neut # (Auto) 8.6 H, Lymph # (Auto) 0.6 L, Haralson # (Auto) 1.2 H, Eos # (Auto) 0.1, Baso # (Auto) 0.0, Absolute Nucleated RBC 0.00, Nucleated RBC % 0.0, PT 14.6 H, INR 1.4 H, Sodium 134 L, Potassium 5.0 H, Chloride 106, Carbon Dioxide 22, Anion Gap 6.0, BUN 40 H , Creatinine 1.2, Estimated GFR (MDRD) 57 L, Glucose 128 H, Calcium 8.8, Total Bilirubin 1.1 H, AST 28, ALT 16, Alkaline Phosphatase 48, Total Protein 7.1, Albumin 4.0, Globulin 3.1, Albumin/Globulin Ratio 1.3, Blood Type A NEGATIVE, Antibody Screen NEGATIVE Lab results reviewed: Yes 08/11/24 05:17 08/11/24 05:17 Meds/Allgy Home Medications Ambulatory Orders Medication Instructions Recorded Confirmed lisinopril 5 mg tablet 5 mg PO DAILY 08/10/24 08/10/24 multivitamin (Daily Multi-Vitamin 1 tab PO DAILY 08/10/24 08/10/24 tablet) Allergies Allergies Allergy/AdvReac Type Severity Reaction Status Date / Time No Known Drug Allergies Allergy Verified 08/10/24 12:36 [facility] Medical History Medical History (Updated 08/11/24 @ 13:14 by Jonah Borrego CRNA) Pacemaker Hip fracture requiring operative repair Hypertension Social History Social History Smoking Status: Former smoker Second hand tobacco smoke exposure: Yes Do you dip or chew tobacco?: No Do you vape?: No Patient requests smoking cessation consult: No Initiate information on smoking cessation: No Relationship: Level: Dependent Home Mobility Equipment: Walker and Wheeled walker Do you feel safe in your home environment?: Yes Suffered physical, verbal, emotional, or financial abuse?: No POLST Patient has POLST: No Anesthesia Exam (Expanded) Exam General: Alert, Oriented x3 and Cooperative Dental: WNL Mouth Openin Fingerbreadth Neck Mobility: Normal Mallampati classification: II Thyromental Distance: 4-6 cm Respiratory: Lungs clear and Normal breath sounds Cardiovascular: Regular rate and Other (pacer) Neurological: Normal speech Mental/Cognitive Status: Alert/Oriented X3 and Normal for patient Cognitive Status: Within normal limits Plan Problem List (1) Closed fracture of left hip: Plan: Ortho consulted by ER provider Scheduled Tylenol As needed oxycodone PT/OT N.p.o. after midnight Qualifiers: Encounter type: initial encounter Qualified Code(s): S72.002A - Fracture of unspecified part of neck of left femur, initial encounter for closed fracture (2) Hypertension: Plan: Restart home dose lisinopril after pharmacy review Plan Placed in observation Full code is his surrogate decision maker Plan Anesthesia Type: Spinal Consent for Procedure(s) Verified and Reviewed: Yes Code Status: Attempt Resuscitation ASA Classification ASA classification: 3-Severe systemic disease Is this case an emergency?: No
[2024-08-11] MEDS ORDERED: fentaNYL 100 MCG/2 ML VIAL ONE (13:39)
[2024-08-11] MEDS ORDERED: TRANEXAMIC ACID 1,000 MG/10 ML VIAL ONE (13:40)
[2024-08-11] MEDS ORDERED: ePHEDrine 50 MG/ML VIAL IVP ONE (13:40)
[2024-08-11] MEDS ORDERED: ceFAZolin 1 GM VIAL ONE (13:56)
[2024-08-11] MEDS ORDERED: TRANEXAMIC ACID 1,000 MG in SODIUM CHLORIDE 0.9% 100ML 100 ML IV PRN (14:00)
[2024-08-11] MEDS ORDERED: PHENYLEPHRINE HCL 0.5 MG/5 ML AMPULE ONE (14:26)
[2024-08-11] MEDS ORDERED: PROPOFOL 200 MG/20 ML VIAL IVP ONE (15:04)
--- NOTE | 2024-08-11 16:05 | OPERATIVE REPORT ---
Operative Report General Admit Date: 08/11/24 Procedure Data: Operation Date: 08/11/24 14:30 Proposed Procedures p Hip Hemiprosthesis(Left) - Ranjan Maciel MD Actual Procedures p LEFT Hip Hemiarthroplasty(Left) - Ranjan Maciel MD Pre-Op Diagnosis: LEFT HIP FEMORAL NECK FRACTURE Anesthesia Type Spinal Case Staff Anesthesia Provider: Jonah Borrego Anesthesia Provider: Brooke Urrutia Anesthesia Provider: Fiordaliza Sandoval Assisting Provider: Daniela Downing Assisting Provider: Sheryl Mcadams Assisting Provider: Jsoe Bender Rep: HAYDEN ANGELA RON/NEPHEW. Rep: DENAE HENDRIX RON/NEPHEW. Case Times Procedure Start: 08/11/24 13:58 Procedure End: 08/11/24 15:50 Time out: 08/11/24 13:57 Implants KIT SURGIFLO W/THROMBIN 2994 PALACOS R PRO 80G BONE CEMENT SYN NAA FEM COMP SZ 12 INVIS DIST CENT SZ 10MM COCR /14 FEM HEAD 28 + 0 Pre-Op Diagnosis: LEFT Hip Femoral Neck Fracture Post Op Diagnosis: SHERITA Other Other Information/Narrative: Op Note Date of Procedure: 08/11/24 Pre-Op Diagnosis:LEFT Hip Closed, displaced femoral neck fracture Post-Op Diagnosis: Closed, displaced femoral neck fracture Procedure [place] Hip Arthroplasty Surgeon: Ranjan Maciel MD Co-Surgeon: MD Sheryl Lennon DO Slot Operations Manager in OR: AYLA Ross Physician Slot Operations Manager was used throughout the entirety of the case. They assisted with room set up, patient positioning, draping, retraction, reduction, fixation and closure. They were essential for the success of the case. Anesthesia Type: Spinal EBL: 300cc Urine Output : 100cc Specimens Removed: None Complications: After the opening canal reamer was used on hand there was increased bleeding from the canal. The bleeding eventually slowed down with irrigation, surgiflo with thrombin and packing. Implants/Grafts: KIT SURGIFLO W/THROMBIN 2994 PALACOS R PRO 80G BONE CEMENT SYNERGY CEMENTED FERMORAL STEM SZ 12 INVIS DISTAL CENTRALIZER SZ 10MM COCR 12/14 FEM HEAD 28 + 0 Drains: No lines, drains, or airways are recorded for this episode. Findings: Narrative: The patient was taken to the OR and administered anesthetic and preoperative antibiotics. They were placed in the lateral position with axillary roll placed and padding under and in between the legs. SCD device placed on the nonoperative leg. Standard prep and drape was done and groin isolation drape placed. Timeout procedure performed. Posterior approach to the hip was used. Incision was made centered over the greater trochanter proximally 10 cm in length. Incision carried down through skin and subcutaneous fat to the fascia pretty. Hemostasis achieved. Fascia pretty opened gluteus muscle divided. Charnley retractor placed. Capsule and external rotators were removed from the posterior femur in an L-shaped fashion as a single layer and tagged with a #5 Tycron suture in the external rotators. Femoral neck cut was then made 1 cm above the lesser trochanter and fragments removed. The head fragment removed with a corkscrew and measured to be 53 mm. Acetabulum was cleared of any bony debris. Posterior capsule was removed from the inner aspect of the greater trochanter and preserved as a superior flap for later repair. Box osteotome initially used followed by canal finder and lateralizing reamer. At this point we encountered increased bleeding from the canal. We confirmed that the reamer was within the bone and there was no additional fracture. We utilized packing, irrigation and thromibin to control the bleeding. It eventually slowed down and we proceded with the case. Broaching of the canal was done after suctioning the canal. Size 12 broach had excellent fit with axial and rotational stability. Trialing was done with proper head size and size +0 spacer provided excellent stability with full extension and external rotation and internal rotation, hip flexion to greater than 70. Leg lengths appeared appropriate at the knees and heel. Trials were removed and irrigation and suctioning was done. Final stem was tapped into place, trunnion cleaned and dried after repeat trialing. Final bipolar head and spacer tapped into place and hip reduced. Posterior capsule closed with #5 Tycron sutures. External rotators close to the posterior inner aspect of the greater trochanter through 2 drill holes pulling the previously placed tagging sutures through and tying a knot. Fascia pretty closed with #1 Vicryl interrupted sutures distally and running proximally. Skin closed with #1 Vicryl deep as needed and 2-0 Vicryl and 3-0 MOnocryl in skin. Sterile dressing placed. Patient transferred to recovery room in stable condition. Plan: Weightbearing as tolerated on extremity. Posterior hip precautions. Follow-up in 2 weeks for wound check and suture removal. DVT prophylaxis. Physical therapy. Ranjan Maciel MD
[2024-08-11] MEDS ORDERED: ONDANSETRON 4 MG/2 ML VIAL IVP PRN (16:09)
[2024-08-11] MEDS ORDERED: ePHEDrine 50 MG/ML VIAL IVP PRN (16:09)
[2024-08-11] MEDS ORDERED: MORPHINE 2 MG/ML CARPUJECT IVP PRN (16:09)
[2024-08-11] MEDS ORDERED: METOCLOPRAMIDE 10 MG/2 ML VIAL IVP PRN (16:09)
[2024-08-11] MEDS ORDERED: ATROPINE ABBOJECT 1 MG/10 ML SYRINGE IVP PRN (16:09)
[2024-08-11] MEDS ORDERED: HYDROmorphone 0.5 MG/0.5 ML SYRINGE IVP PRN (16:09)
[2024-08-11] MEDS ORDERED: NALOXONE 0.4 MG/ML VIAL IVP PRN (16:09)
[2024-08-11] MEDS ORDERED: fentaNYL 100 MCG/2 ML VIAL IVP PRN (16:09)
--- NOTE | 2024-08-11 16:10 | ANESTHESIA POST OP EVALUATION ---
Anesthesia Post Eval Post Anesthesia Eval Vitals: Last Vital Signs Temp 36.7 C 08/11/24 09:30 Pulse 59 L 08/11/24 09:30 Resp 18 08/11/24 09:30 BP 148/71 H 08/11/24 09:30 Pulse Ox 96 08/11/24 09:30 CV Function Including HR & BP: Stable Pain Control: Satisfactory Nausea & Vomiting: Negative Mental Status: Baseline Respiratory Status: Airway Patent Hydration Status: Satisfactory Anesthesia Complications: None
[2024-08-11] MEDS ORDERED: fentaNYL 250 MCG/5 ML VIAL IVP PRN (16:33)
--- NOTE | 2024-08-11 16:36 | XRAY Report ---
PROCEDURE: XR Hip w/Pelvis 1V LT INDICATIONS: post operative imaging TECHNIQUE: AP pelvis with lateral view(s) of the hip(s). COMPARISON: X-ray hip to 08/10/2024 FINDINGS: Interval left hip arthroplasty postsurgical changes. Stable appearance of right femoral pin and reji f ixation. Soft tissue postsurgical change. IMPRESSION: Postoperative left hip arthroplasty. Reviewed by: Dominique Arenas MD on 08/11/2024 4:35 PM PST Approved by: Dominique Arenas MD on 08/11/2024 4:35 PM PST Station ID: [id number]
[2024-08-11] MEDS ORDERED: LACTATED RINGERS 1,000 ML IV SCH (17:00)
[2024-08-11] MEDS: NS W/20 MEQ KCL 1,000 ML IV SCH (17:37)
[2024-08-11] MEDS: ceFAZolin (2G) 2 GM in SODIUM CHLORIDE 0.9% MINIBAG 100 ML IV SCH (17:38)
[2024-08-11] MEDS: LACTATED RINGERS 1,000 ML IV SCH (18:41)
[2024-08-11] MEDS: ceFAZolin (2G) 2 GM in SODIUM CHLORIDE 0.9% MINIBAG 100 ML IV ONE (18:41)
--- NOTE | 2024-08-11 19:27 | PROVIDER PROGRESS NOTE ---
Subjective Prog Note Date Prog Note Date: 08/11/24 Subjective Subjective: Seen post op. he has eaten well this evening. was very hungry. no nausea. pain is controlled. concerned because no BM for several days prior to this. Patient had problems post op after last hip fracture with urinary retention, and even had problems with EDWARDO due to obstruction. retention this AM, therefore crockett was placed. PAtient and prefer to keep this in place for some time. has hesitancy and frequency at home. would like to be followed by urology here as outpatient. Current Medications Current Medications Current Medications: Current Medications Generic Name Dose Route Start Last Admin Trade Name Freq PRN Reason Stop Dose Admin Acetaminophen 1,000 mg 08/11/24 22:00 Acetaminophen 500 Mg Tablet PO TID [facility] Aspirin 81 mg 08/11/24 21:00 Aspirin Ec 81 Mg Tablet PO BID [facility] Docusate Sodium 100 mg 08/11/24 21:00 Docusate Sodium 100 Mg Capsule PO BID [facility] Docusate Sodium 250 mg 08/11/24 21:00 Docusate Sodium 250 Mg Capsule PO BID [facility] Famotidine 40 mg 08/11/24 09:00 08/11/24 09:13 Famotidine 20 Mg Tablet PO 40 mg DAILY [facility] Administration Fentanyl 25 mcg 08/11/24 16:33 Fentanyl 250 Mcg/5 Ml Vial IVP Q2HR PRN Severe Breakthrough pain(8-10) Cefazolin Sodium 2 gm/ Sodium 100 mls @ 200 mls/hr 08/11/24 17:00 08/11/24 19:25 Chloride IV 08/12/24 01:29 Infused Q8H [facility] Infusion Potassium Chloride/Sodium Chloride 1,000 mls @ 75 mls/hr 08/11/24 17:00 08/11/24 17:37 Normal Saline 0.9% W/20 Meq Kcl IV 08/12/24 06:19 75 mls/hr .[id number] [facility] Administration Metoclopramide HCl 10 mg 08/11/24 16:09 Metoclopramide 10 Mg/2 Ml Vial IVP Q6HR PRN N/V not relieved by Zofran Ondansetron HCl 4 mg 08/10/24 14:50 Ondansetron Odt 4 Mg Tablet TL Q6HR PRN Nausea / Vomiting Ondansetron HCl 4 mg 08/10/24 14:50 Ondansetron 4 Mg/2 Ml Vial IVP Q6HR PRN Nausea / Vomiting Oxycodone HCl 2.5 mg 08/11/24 16:33 Oxycodone 5 Mg Tablet PO Q6HR PRN Severe Breakthrough pain(8-10) Polyethylene Glycol 17 gm 08/12/24 09:00 Polyethylene Glycol 3350 17 Gm Packet PO DAILY [facility] Polyethylene Glycol 17 gm 08/11/24 21:00 Polyethylene Glycol 3350 17 Gm Packet PO BID [facility] Senna 8.6 mg 08/11/24 21:00 Senna 8.6 Mg Tablet PO BID [facility] Sodium Chloride 10 ml 08/10/24 14:50 Sodium Chloride Flush 0.9% 10 Ml Syringe IVP PRN PRN NEEDED PER PROVIDER ORDERS Sodium Chloride 10 ml 08/10/24 17:00 08/11/24 17:37 Sodium Chloride Flush 0.9% 10 Ml Syringe IVP 10 ml 0100,0900,1700 [facility] Administration Objective Vital Signs/Intake & Output Reviewed Vital Signs: Yes Vital Signs: Vital Signs x48h Temp Pulse Pulse Resp BP BP Pulse Ox 08/11/24 18:03 36.5 C 78 20 116/49 L 100 08/11/24 17:03 36.5 C 75 20 108/60 99 08/11/24 16:37 36.6 C 72 16 104/70 99 08/11/24 16:33 36.6 C 74 16 104/70 99 08/11/24 16:20 36.0 C L 75 19 112/66 97 08/11/24 16:14 36.2 C L 80 19 97/54 L 98 08/11/24 16:05 36.2 C L 707 H 17 103/57 L 95 08/11/24 16:02 36.6 C 70 18 105/64 99 08/11/24 15:56 36.6 C 95 16 85/55 L 96 O2 Flow Rate 08/11/24 18:03 08/11/24 17:03 4 08/11/24 16:37 08/11/24 16:33 4 08/11/24 16:20 08/11/24 16:14 08/11/24 16:05 08/11/24 16:02 08/11/24 15:56 Intake & Output: Intake & Output 08/08/24 08/09/24 08/10/2425 23:59 23:59 23:59 23:59 Intake Total 360 / 360 420 / 420 Output Total 1750 / 1750 Balance 360 / 360 -1330 / -1330 Weight (kg) 81 kg Objective General Appearance: positive No acute distress and Alert Eyes Bilateral: positive Conjunctivae nml ENT: positive ENT inspection nml Neck: positive Nml inspection Respiratory: positive No respiratory distress and Breath sounds nml Cardiovascular: positive Regular rate & rhythm Abdomen: positive No distention Skin: positive Color nml Extremities: positive Other (dressing at left hip is intact without strike through) Neurologic/Psychiatric: positive Oriented x3 Lab Results 08/11/24 05:17 08/11/24 05:17 Other Labs: Lab Results x24hrs 08/11/24 Range/Units 05:17 WBC 8.1 (4.8-10.8) x10^3/uL RBC 3.65 L (4.70-6.10) 10^6/uL Hgb 11.2 L (14.0-18.0) g/dL Hct 33.1 L (42.0-52.0) % MCV 90.7 (80.0-94.0) fL MCH 30.7 (27.0-31.0) pg MCHC 33.8 (32.0-36.0) g/dL RDW 13.2 (12.0-15.0) % Plt Count 141 (130-450) 10^3/uL MPV 11.4 (7.4-11.4) fL Neut # (Auto) 5.3 (1.5-6.6) 10^3/uL Lymph # (Auto) 1.2 L (1.5-3.5) 10^3/uL Frontier # (Auto) 1.4 H (0.0-1.0) 10^3/uL Eos # (Auto) 0.2 (0.0-0.7) 10^3/uL Baso # (Auto) 0.0 (0.0-0.1) 10^3/uL Absolute Nucleated RBC 0.00 x10^3/uL Nucleated RBC % 0.0 /100WBC Sodium 136 (135-145) mmol/L Potassium 4.4 (3.5-4.5) mmol/L Chloride 108 (101-111) mmol/L Carbon Dioxide 23 (21-32) mmol/L Anion Gap 5.0 L (6-13) BUN 41 H (6-20) mg/dL Creatinine 1.1 (0.6-1.3) mg/dL Estimated GFR (MDRD) 63 L (>89) Glucose 96 (74-104) mg/dL Calcium 8.6 (8.5-10.3) mg/dL Iron 31 L (50-212) ug/dL TIBC 221 L (250-450) ug/dL % Saturation 14 L (20-50) % Transferrin 158 L (203-362) mg/dL Diagnostic Imaging Diagnostic Imaging Comments: post op films reviewed. Assessment/Plan Problem List (1) Closed fracture of left hip: Impression: POD #0 left hemiarthroplasty. Discussed with Dr Maciel post op. Pain is controlled. EBL 300 ml. no tachycardia or hypotension. Will check CBC in AM. ASA 81mg for DVT prophylaxis. Early mobilization. OK to pivot to commode overnight PRN. WBAT with posterior hip precautions. PT and OT tomrrow for assessment for home vs rehab. Was walking up to 2 miles at a time preop Qualifiers: Encounter type: initial encounter Qualified Code(s): S72.002A - Fracture of unspecified part of neck of left femur, initial encounter for closed fracture (2) Acute urinary retention: Impression: retention this AM with >500cc in bladder. Crockett placed without incident. Will leave this in place until mobility and pain control is much better established. Will defer to outpatient removal given his historical experiences. PAtient and prefer to keep this in place for some time. has hesitancy and frequency at home. would like to be followed by urology here as outpatient. (3) Hypertension: Impression: Lisinopril 5mg daily at home. holding this post operatively, has not been hypertensive. I have spent 40 minutes in the care of this patient today. This includes time [id number], review and ordering of diagnostic imaging and laboratory studie patient today. s and consultation with other providers..
[2024-08-11] MEDS ORDERED: DOCUSATE SODIUM 100 MG CAPSULE PO SCH (21:00)
[2024-08-11] MEDS: polyethylene glycoL 3350 17 GM PACKET PO SCH (21:12)
[2024-08-11] MEDS: DOCUSATE SODIUM 250 MG CAPSULE PO SCH (21:12)
[2024-08-11] MEDS: SENNA 8.6 MG TABLET PO SCH (21:13)
[2024-08-11] MEDS: ACETAMINOPHEN 500 MG TABLET PO SCH (21:13)
[2024-08-11] MEDS: oxyCODONE 5 MG TABLET PO PRN (21:48)
[2024-08-12 05:57] LABS: BASOPHILS % (AUTO) 0.3 %; EOSINOPHILS # (AUTO) 0.1 10^3/uL (0.0-0.7); EOSINOPHILS % (AUTO) 0.9 %; HCT - HEMATOCRIT 30.3 % (42.0-52.0); HGB - HEMOGLOBIN 10.1 g/dL (14.0-18.0); LYMPHOCYTES # (AUTO) 0.9 10^3/uL (1.5-3.5); LYMPHOCYTES % (AUTO) 7.7 %; MEAN CORPUSCULAR HEMOGLOBIN 30.6 pg (27.0-31.0); MEAN CORPUSCULAR HGB CONC 33.3 g/dL (32.0-36.0); MEAN CORPUSCULAR VOLUME 91.8 fL (80.0-94.0); MEAN PLATELET VOLUME 11.5 fL (7.4-11.4); MONOCYTES # (AUTO) 1.5 10^3/uL (0.0-1.0); NEUTROPHILS # (AUTO) 8.9 10^3/uL (1.5-6.6); NEUTROPHILS % (AUTO) 77.7 %; PLT - PLATELET COUNT 139 10^3/uL (130-450); RED CELL DISTRIBUTION WIDTH 13.1 % (12.0-15.0); WHITE BLOOD COUNT 11.5 x10^3/uL (4.8-10.8)
[2024-08-12 05:59] LABS: CALCIUM 7.8 mg/dL (8.5-10.3); CREATININE 1.1 mg/dL (0.6-1.3); POTASSIUM 4.7 mmol/L (3.5-4.5)
[2024-08-12] MEDS: polyethylene glycoL 3350 17 GM PACKET PO SCH (08:48)
[2024-08-12] MEDS ORDERED: ENOXAPARIN 40 MG/0.4 ML SYRINGE SUBQ SCH (09:00)
[2024-08-12] MEDS ORDERED: fentaNYL 100 MCG/2 ML VIAL IVP PRN (10:47)
[2024-08-12] MEDS: FERRIC GLUCONATE 125 MG in SODIUM CHLORIDE 0.9% 100ML 100 ML IV ONE (11:16)
--- NOTE | 2024-08-12 13:10 | OT Plan of Care ---
<Statement entered by Daniela Downing PA-C - 08/12/24 13:54> I Daniela Downing certify the need for these services furnished under this plan of treatment while under the care of the above named therapist. I have no revisions to the plan of care. OT Plan of Care OT Plan of Care: Diagnosis Diagnosis L Hemiarthroplasty Chief Complaint L hip pain s/p fall Onset of Chief Complaint 1 wk thermometer tester Medical History (Updated 08/11/24 @ 19:35 by AYLA Zavala) Pacemaker Hip fracture requiring operative repair Hypertension Assessment Assessment Pt is an 89 y/o male presenting with 1wk hip pain s/p ground level fall outside; Pt ambulated for a week with increasing pain. In ED found to have Non-displaced left femoral neck fracture. To OR on 08/11 for L hemiarthoplasty. POD #1, WBAT , Posterior hip precautions. Met supine in bed, A&Ox4, follows all commands appropriately. Educated on THP with fair understanding will cont to reinforce. present for session. BP 101/52 seated, 86/48 post activity- denied dizziness. RN updated. Performed supine to sit MIN A , sit to stand MIN Ax2, and SPT bed to chair MIN A-MOD Ax2 using RW. Currently MOD A LB , MIN A UB ADLs. Overall presents with decreased endurance, activity tolerance and ADL status. Will benefit from cont OT services during acute stay. Rec d/c to SNF at this time. Goals - Activities of Daily Living Improve Upper Extremity Modified Independent Dressing to: Improve Lower Extremity Modified Independent Dressing to: Improve Grooming/Hygiene to: Modified Independent Improve Bathing to: Modified Independent Improve Toileting to: Modified Independent Plan Treatment Frequency 1x/day Duration Until discharge -Discharge Recommendations Discharge Location [facility] Transport Needs at Discharge [facility]
--- NOTE | 2024-08-12 13:19 | PT Plan of Care ---
<Statement entered by Daniela Downing PA-C - 08/12/24 13:53> I Daniela Downing certify the need for these services furnished under this plan of treatment while under the care of the above named therapist. I have no revisions to the plan of care. 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 Today is POD1. Pt is fully indep at baseline, lives at home with . H/o R hip surgery s/p fall "a few years ago" with good recovery. Upon PT eval, pt is hypotensive BP 101/52, HR 82. Transfers to EOB with minAx2, STS w/ modAx2 and FWW. Pt demonstrates reluctance to bear weight through LLE despite instructions on WBing precautions. Requires seated rest then able to SPT to b/s chair with minAx2. Hypotensive after mobility with BP 86/48 , HR 74. RN attended and aware of hypotension. Overall pt is presenting far below his baseline and at this time PT rec dc to SNF for further rehab. Plan to continue skilled PT in acute setting until dc. Goals Improve bed mobility to: Modified Independent Improve supine to sit to: Modified Independent Improve sit to stand to: Contact Guard Improve sit to supine to: Modified Independent Improve gait ability to: Min A Assistive Device Used: Front Wheeled Walker PT Plan of Care Frequency 1-2x/day Duration Until goals are met Discharge Recommendations Discharge Location Group Home Facility DC Equipment Recommended Front wheeled walker Transport Needs at Discharge B.L.[facility]
[2024-08-12] MEDS: LACTATED RINGERS 1,000 ML IV ONE (13:47)
--- NOTE | 2024-08-12 14:01 | POST OP PROGRESS NOTE ---
Subjective General Admit Date: 08/11/24 Other Other Information/Narrative: 89yo M s/p LEFT Hip Hemiarthroplasty on 08/11/24 for a LEFT femoral neck fracture. S: Reports that he is having pain in the left hip. Denies CP/SOB/N/V. Was able to get up and stand with physical therapy. O: Dressing C/D/I Fires Quad/Ham/TA/EHL/Gastroc SILT in S/S/DP/SP/T nerve distributions A/P: S/p Left hip hemiarthroplasty on 08/11/24. Doing well. -No further antibiotics needed -Pain meds per primary team -WBAT -Posterior Hip Precautions -Continue to work with PT -ASA daily for DVT prophylaxis -Regular diet -FU with ortho clinic in 2 weeks (Ortho staff will call to set up appt) Orthopedics will sign off. Please let us know if you have any questions. Ranjan Maciel MD [phone] cell Exam Exam LEFT Hip: Inspection: No erythema, swelling, bruising, atrophy. ROM: Deferred due to known fracture Neurovascular exam: 11/08 ta/gc/ehl; SILT s/s/sp/dp/t, 2+ dp Imaging: Left hip x-rays on demonstrate a rotated and displaced femoral neck fracture.
[2024-08-12] MEDS ORDERED: polyethylene glycoL 3350 17 GM PACKET PO PRN (18:54)
[2024-08-12] MEDS ORDERED: SENNA 8.6 MG TABLET PO PRN (18:54)
--- NOTE | 2024-08-12 18:55 | PROVIDER PROGRESS NOTE ---
Subjective Prog Note Date Prog Note Date: 08/12/24 Subjective Subjective: Doing well today, he has been tired this afternoon after working with PT and seeing surgery team. eating well, and drinking well, but continues to have orthostatic hypotension. Current Medications Current Medications Current Medications: Current Medications Generic Name Dose Route Start Last Admin Trade Name Freq PRN Reason Stop Dose Admin Acetaminophen 1,000 mg 08/11/24 22:00 08/12/24 13:47 Acetaminophen 500 Mg Tablet PO 1,000 mg TID TIGIST Administration Aspirin 81 mg 08/11/24 21:00 08/12/24 08:48 Aspirin Ec 81 Mg Tablet PO 81 mg BID TIGIST Administration Docusate Sodium 250 mg 08/11/24 21:00 08/12/24 08:48 Docusate Sodium 250 Mg Capsule PO 250 mg BID TIGIST Administration Famotidine 40 mg 08/11/24 09:00 08/12/24 08:48 Famotidine 20 Mg Tablet PO 40 mg DAILY TIGIST Administration Ondansetron HCl 4 mg 08/10/24 14:50 Ondansetron Odt 4 Mg Tablet TL Q6HR PRN Nausea / Vomiting Ondansetron HCl 4 mg 08/10/24 14:50 Ondansetron 4 Mg/2 Ml Vial IVP Q6HR PRN Nausea / Vomiting Oxycodone HCl 2.5 mg 08/11/24 16:33 08/11/24 21:48 Oxycodone 5 Mg Tablet PO 2.5 mg Q6HR PRN Administration Severe Breakthrough pain(8-10) Polyethylene Glycol 17 gm 08/11/24 21:00 08/12/24 12:45 Polyethylene Glycol 3350 17 Gm Packet PO Not Given BID TIGIST Senna 8.6 mg 08/11/24 21:00 08/12/24 08:48 Senna 8.6 Mg Tablet PO 8.6 mg BID TIGIST Administration Sodium Chloride 10 ml 08/10/24 14:50 Sodium Chloride Flush 0.9% 10 Ml Syringe IVP PRN PRN NEEDED PER PROVIDER ORDERS Sodium Chloride 10 ml 08/10/24 17:00 08/12/24 17:29 Sodium Chloride Flush 0.9% 10 Ml Syringe IVP 10 ml 0100,0900,1700 TIGIST Administration Objective Vital Signs/Intake & Output Reviewed Vital Signs: Yes Vital Signs: Vital Signs x48h Temp Pulse Resp BP Pulse Ox 08/12/24 17:00 36.7 C 61 18 112/52 L 97 08/12/24 13:46 36.7 C 72 20 105/59 L 96 08/12/24 12:29 37.4 C 76 20 141/72 H 96 Intake & Output: Intake & Output 08/09/24 08/10/24 08/11/24 08/12/24 23:59 23:59 23:59 23:59 Intake Total 360 / 360 570 / 570 2930 / 2930 Output Total 1999 750 / 750 Balance 360 / 360 -1430 / -1430 2180 / 2180 Weight (kg) 81 kg Objective General Appearance: positive No acute distress and Alert Eyes Bilateral: positive Conjunctivae nml ENT: positive ENT inspection nml Neck: positive Nml inspection Respiratory: positive No respiratory distress and Breath sounds nml Cardiovascular: positive Regular rate & rhythm Abdomen: positive No distention Skin: positive Color nml Extremities: positive Other (dressing at left hip is intact without strike through) Neurologic/Psychiatric: positive Oriented x3 Comments/Other: shared a copy of post op XR with patient and his spouse. discussed posterior hip precautions. Lab Results 08/12/24 05:23 08/12/24 05:23 Other Labs: Lab Results x24hrs 08/12/24 Range/Units 05:23 WBC 11.5 H (4.8-10.8) x10^3/uL RBC 3.30 L (4.70-6.10) 10^6/uL Hgb 10.1 L (14.0-18.0) g/dL Hct 30.3 L (42.0-52.0) % MCV 91.8 (80.0-94.0) fL MCH 30.6 (27.0-31.0) pg MCHC 33.3 (32.0-36.0) g/dL RDW 13.1 (12.0-15.0) % Plt Count 139 (130-450) 10^3/uL MPV 11.5 H (7.4-11.4) fL Neut # (Auto) 8.9 H (1.5-6.6) 10^3/uL Lymph # (Auto) 0.9 L (1.5-3.5) 10^3/uL [place] # (Auto) 1.5 H (0.0-1.0) 10^3/uL Eos # (Auto) 0.1 (0.0-0.7) 10^3/uL Baso # (Auto) 0.0 (0.0-0.1) 10^3/uL Absolute Nucleated RBC 0.00 x10^3/uL Nucleated RBC % 0.0 /100WBC Sodium 135 (135-145) mmol/L Potassium 4.7 H (3.5-4.5) mmol/L Chloride 107 (101-111) mmol/L Carbon Dioxide 23 (21-32) mmol/L Anion Gap 5.0 L (6-13) BUN 34 H (6-20) mg/dL Creatinine 1.1 (0.6-1.3) mg/dL Estimated GFR (MDRD) 63 L (>89) Glucose 143 H (74-104) mg/dL Calcium 7.8 L (8.5-10.3) mg/dL Assessment/Plan Problem List (1) Closed fracture of left hip: Impression: POD #1 left hemiarthroplasty. Discussed with Dr Maciel today. Ortho team is OK for patient to dispo to home or to SNF dependent on therapy recommendations. had some pain overnight. EBL 300 ml. no tachycardia or hypotension. HGB drop from 11 to 10. ASA 81mg for DVT prophylaxis. continue to mobilize. PT and OT currently recommending to rehab, but patient may improve with time. Was walking up to 2 miles at a time preop Qualifiers: Encounter type: initial encounter Qualified Code(s): S72.002A - Fracture of unspecified part of neck of left femur, initial encounter for closed fracture (2) Acute urinary retention: Impression: retention pre op with >500cc in bladder. Soares placed without incident. Will leave this in place until mobility and pain control is much better established. Will defer to outpatient removal given his historical experiences. PAtient and prefer to keep this in place for some time. has hesitancy and frequency at home. would like to be followed by urology as outpatient. I have messaged our outpatient urology team. Additionally I have left a message for his primary care physician, Dr. Stacy Terry with [place] and requested urology referral to [facility] on behalf of the patient per the patient's request. (3) Orthostatic hypotension: Impression: Selected Entries 02/06/25 09:47 08/12/24 09:50 Pulse Rate [Brachial] 69 70 Blood Pressure [Right Brachial artery] 80/39 L 80/44 L Antihypertensives have been held. He continues to have orthostatic hypotension. He has been given a liter of LR this morning, bolus. He is eating and drinking well. He is not markedly anemic. Will continue to safely mobilize him. (4) Hypertension: Impression: Lisinopril 5mg daily at home. holding this post operatively, has not been hypertensive. I have spent 38 minutes in the care of this patient today. This includes time [id number], review and ordering of diagnostic imaging and laboratory studie patient today. s and consultation with other providers..
[2024-08-12] MEDS: CALCIUM CARBONATE CHEW 500 MG TABLET PO SCH (20:58)
[2024-08-13 06:04] LABS: BASOPHILS % (AUTO) 0.4 %; EOSINOPHILS # (AUTO) 0.4 10^3/uL (0.0-0.7); EOSINOPHILS % (AUTO) 4.6 %; HCT - HEMATOCRIT 25.6 % (42.0-52.0); HGB - HEMOGLOBIN 8.4 g/dL (14.0-18.0); LYMPHOCYTES # (AUTO) 1.2 10^3/uL (1.5-3.5); LYMPHOCYTES % (AUTO) 13.2 %; MEAN CORPUSCULAR HEMOGLOBIN 29.9 pg (27.0-31.0); MEAN CORPUSCULAR HGB CONC 32.8 g/dL (32.0-36.0); MEAN CORPUSCULAR VOLUME 91.1 fL (80.0-94.0); MEAN PLATELET VOLUME 11.4 fL (7.4-11.4); MONOCYTES # (AUTO) 1.2 10^3/uL (0.0-1.0); MONOCYTES % (AUTO) 12.8 %; NEUTROPHILS # (AUTO) 6.2 10^3/uL (1.5-6.6); NEUTROPHILS % (AUTO) 68.6 %; PLT - PLATELET COUNT 128 10^3/uL (130-450); RED BLOOD COUNT 2.81 10^6/uL (4.70-6.10); WHITE BLOOD COUNT 9.1 x10^3/uL (4.8-10.8)
[2024-08-13 06:22] LABS: CALCIUM 7.7 mg/dL (8.5-10.3); CREATININE 0.9 mg/dL (0.6-1.3); POTASSIUM 4.4 mmol/L (3.5-4.5)
[2024-08-13] MEDS: DOCUSATE SODIUM 250 MG CAPSULE PO PRN (07:57)
[2024-08-13] MEDS: CHOLECALCIFEROL 400 UNIT TABLET PO SCH (13:15)
--- NOTE | 2024-08-13 18:14 | PROVIDER PROGRESS NOTE ---
Subjective Prog Note Date Prog Note Date: 08/13/24 Subjective Subjective: no change. doing fine. PT is concerned that he does need SNF. Only available SNF is too far away from home. Patient and do not want him to be so far away. They both are insisting on dc to home. Current Medications Current Medications Current Medications: Current Medications Generic Name Dose Route Start Last Admin Trade Name Samira PRN Reason Stop Dose Admin Acetaminophen 1,000 mg 08/11/24 22:00 08/13/24 13:15 Acetaminophen 500 Mg Tablet PO 1,000 mg TID TIGIST Administration Aspirin 81 mg 08/11/24 21:00 08/13/24 11:38 Aspirin Ec 81 Mg Tablet PO Not Given BID TIGIST Calcium Carbonate/Glycine 500 mg 08/12/24 21:00 08/13/24 11:38 Calcium Carbonate Chew 500 Mg Tablet PO Not Given BID TIGIST Cholecalciferol 400 unit 08/13/24 09:00 08/13/24 13:15 Cholecalciferol 400 Unit Tablet PO 400 unit DAILY TIGIST Administration Docusate Sodium 250 mg 08/12/24 18:54 08/13/24 07:57 Docusate Sodium 250 Mg Capsule PO 250 mg BID PRN Administration Constipation Famotidine 40 mg 08/11/24 09:00 08/13/24 11:38 Famotidine 20 Mg Tablet PO Not Given DAILY TIGIST Ondansetron HCl 4 mg 08/10/24 14:50 Ondansetron Odt 4 Mg Tablet TL Q6HR PRN Nausea / Vomiting Ondansetron HCl 4 mg 08/10/24 14:50 Ondansetron 4 Mg/2 Ml Vial IVP Q6HR PRN Nausea / Vomiting Oxycodone HCl 2.5 mg 08/11/24 16:33 08/11/24 21:48 Oxycodone 5 Mg Tablet PO 2.5 mg Q6HR PRN Administration Severe Breakthrough pain(8-10) Polyethylene Glycol 17 gm 08/12/24 18:54 Polyethylene Glycol 3350 17 Gm Packet PO BID PRN Constipation Senna 8.6 mg 08/12/24 18:54 Senna 8.6 Mg Tablet PO BID PRN Constipation Sodium Chloride 10 ml 08/10/24 14:50 Sodium Chloride Flush 0.9% 10 Ml Syringe IVP PRN PRN NEEDED PER PROVIDER ORDERS Sodium Chloride 10 ml 08/10/24 17:00 08/13/24 17:39 Sodium Chloride Flush 0.9% 10 Ml Syringe IVP Not Given 0100,0900,1700 [facility] Objective Vital Signs/Intake & Output Reviewed Vital Signs: Yes Vital Signs: Vital Signs x48h Temp Pulse Resp BP Pulse Ox 08/13/24 16:37 36.8 C 60 18 133/61 H 98 08/13/24 13:00 36.8 C 66 20 128/64 98 Intake & Output: Intake & Output 08/10/24 08/11/24 08/12/24 08/13/24 23:59 23:59 23:59 23:59 Intake Total 360 / 360 570 / 570 3420 / 3420 600 / 600 Output Total 2000 / 1999 1100 / 1100 1750 / 1750 Balance 360 / 360 -1430 / -1430 2320 / 2320 -1150 / -1150 Weight (kg) 81 kg Objective General Appearance: positive No acute distress and Alert Eyes Bilateral: positive Conjunctivae nml ENT: positive ENT inspection nml Neck: positive Nml inspection Respiratory: positive No respiratory distress and Breath sounds nml Cardiovascular: positive Regular rate & rhythm Abdomen: positive No distention Skin: positive Color nml Extremities: positive Other (dressing at left hip is intact without strike through) Neurologic/Psychiatric: positive Oriented x3 Comments/Other: shared a copy of post op XR with patient and his spouse. discussed posterior hip precautions. Lab Results 08/13/24 05:14 08/13/24 05:14 Other Labs: Lab Results x24hrs 08/13/24 Range/Units 05:14 WBC 9.1 (4.8-10.8) x10^3/uL RBC 2.81 L (4.70-6.10) 10^6/uL Hgb 8.4 L (14.0-18.0) g/dL Hct 25.6 L (42.0-52.0) % MCV 91.1 (80.0-94.0) fL MCH 29.9 (27.0-31.0) pg MCHC 32.8 (32.0-36.0) g/dL RDW 13.0 (12.0-15.0) % Plt Count 128 L (130-450) 10^3/uL MPV 11.4 (7.4-11.4) fL Neut # (Auto) 6.2 (1.5-6.6) 10^3/uL Lymph # (Auto) 1.2 L (1.5-3.5) 10^3/uL [place] # (Auto) 1.2 H (0.0-1.0) 10^3/uL Eos # (Auto) 0.4 (0.0-0.7) 10^3/uL Baso # (Auto) 0.0 (0.0-0.1) 10^3/uL Absolute Nucleated RBC 0.00 x10^3/uL Nucleated RBC % 0.0 /100WBC Sodium 132 L (135-145) mmol/L Potassium 4.4 (3.5-4.5) mmol/L Chloride 105 (101-111) mmol/L Carbon Dioxide 23 (21-32) mmol/L Anion Gap 4.0 L (6-13) BUN 25 H (6-20) mg/dL Creatinine 0.9 (0.6-1.3) mg/dL Estimated GFR (MDRD) 80 L (>89) Glucose 98 (74-104) mg/dL Calcium 7.7 L (8.5-10.3) mg/dL Assessment/Plan Problem List (1) Closed fracture of left hip: Impression: POD #2 left hemiarthroplasty. Ortho signed off on POD #1 Ortho team is OK for patient to dispo to home or to SNF dependent on therapy recommendations. pain controlled. EBL 300 ml. no tachycardia or hypotension. HGB drop from 11 to 8.4 . ASA 81mg for DVT prophylaxis. continue to mobilize. PT and OT currently recommending to rehab, but patient and his spouse are firm in desire to dc to home. Conversations today with social work and spouse regarding needed equipment and help with getting home. Was walking up to 2 miles at a time preop Qualifiers: Encounter type: initial encounter Qualified Code(s): S72.002A - Fracture of unspecified part of neck of left femur, initial encounter for closed fracture (2) Acute urinary retention: Impression: retention pre op with >500cc in bladder. Crockett placed without incident. Will leave this in place until mobility and pain control is much better established. Will defer to outpatient removal given his historical experiences. PAtient and prefer to keep this in place for some time. has hesitancy and frequency at home. would like to be followed by urology as outpatient. I have messaged our outpatient urology team. Additionally I have left a message for his primary care physician, Dr. Valencia with [place] and requested urology referral to [facility] on behalf of the patient per the patient's request. received return phone call from Dr Valencia's office who states that I can indeed refer to urology for outpatient crockett management. (3) Orthostatic hypotension: Impression: Resolved. He has been normotensive today. He is on a small dose of lisinopril at home. I discussed this with his today. I think I would prefer that he be slightly hypertensive through this period of recovery at home then hypotensive and falling. For this reason I am recommending holding his 5 mg of lisinopril every day on discharge to home and following up with primary care to consider restart at a later date.. (4) Hypertension: Impression: Lisinopril 5mg daily at home. holding this post operatively, has not been hypertensive. Please see above I have spent 40 minutes in the care of this patient today. This includes time [id number], review and ordering of diagnostic imaging and laboratory studie patient today. s and consultation with other providers..
[2024-08-14 06:16] LABS: BASOPHILS % (AUTO) 0.2 %; EOSINOPHILS # (AUTO) 0.7 10^3/uL (0.0-0.7); EOSINOPHILS % (AUTO) 8.8 %; HCT - HEMATOCRIT 24.9 % (42.0-52.0); HGB - HEMOGLOBIN 8.2 g/dL (14.0-18.0); LYMPHOCYTES % (AUTO) 12.8 %; MEAN CORPUSCULAR HEMOGLOBIN 29.9 pg (27.0-31.0); MEAN CORPUSCULAR HGB CONC 32.9 g/dL (32.0-36.0); MEAN CORPUSCULAR VOLUME 90.9 fL (80.0-94.0); MEAN PLATELET VOLUME 10.5 fL (7.4-11.4); MONOCYTES % (AUTO) 12.7 %; NEUTROPHILS # (AUTO) 5.3 10^3/uL (1.5-6.6); NEUTROPHILS % (AUTO) 65.3 %; PLT - PLATELET COUNT 143 10^3/uL (130-450); RED BLOOD COUNT 2.74 10^6/uL (4.70-6.10); RED CELL DISTRIBUTION WIDTH 12.7 % (12.0-15.0); WHITE BLOOD COUNT 8.1 x10^3/uL (4.8-10.8)
[2024-08-14 06:30] LABS: CALCIUM 7.9 mg/dL (8.5-10.3); CREATININE 0.9 mg/dL (0.6-1.3); POTASSIUM 4.3 mmol/L (3.5-4.5)
[2024-08-14 08:28] VITALS: O2SAT 96
--- NOTE | 2024-08-14 12:38 | Discharge Summary ---
"Discharge Summary Admit Date: 08/10/24 Discharge Date: 08/14/24 Discharging Provider: Torri Mcgovern PA-C Primary Care Provider: Mylene Valencia MD Code Status: Attempt Resuscitation DIAGNOSES Discharge Diagnoses with Status of Each Condition: Left femoral neck fracture, status post left hemiarthroplasty Acute urinary retention, discharged to home with Crockett in place Orthostatic hypotension, postoperatively, resolved. Hypertension, on lisinopril 5 mg daily at home. This was held on hospital discharge as his blood pressures have been normal without it. HPI History of Present Illness: 89-year-old male with history of hypertension who slipped and fell on the ice a few days ago. He was initially able to walk on it, but cannot walk now. He reports pain and deformity in his left leg. In the ER, lower extremity CT was performed which showed slightly comminuted and displaced fracture in the left femoral neck as well as osteoarthritis and soft tissue swelling. Orthopedic surgery was contacted by ER provider, and they recommended admission to medicine for hip fracture CONSULTS | PROCEDURES Consultations: Dr. Ranjan Maciel, orthopedics. Procedures: Preop x-ray showing left femoral neck fracture, impacted with varus angulation. Lower extremity CT significant for same as above. Postop x-ray showing hip arthroplasty with postsurgical changes. HOSPITAL COURSE Hospital Course: (1) Closed fracture of left hip: s/p left hemiarthroplasty. Ortho signed off on POD #1 Ortho team is OK for patient to dispo to home or to SNF dependent on therapy recommendations. pain controlled. EBL 300 ml. no tachycardia or hypotension. HGB drop from 11 to 8.4 . ASA 81mg BID for DVT prophylaxis. continue to mobilize. PT and OT currently recommending to rehab, but patient and his spouse are firm in desire to dc to home. Conversations with social work and spouse regarding needed equipment and help with getting home. Was walking up to 2 miles at a time preop Qualifiers: (2) Acute urinary retention: retention pre op with >500cc in bladder. Crockett placed without incident. Will leave this in place until mobility and pain control is much better established. Will defer to outpatient removal given his historical experiences. Patient and prefer to keep this in place for some time. has hesitancy and frequency at home. would like to be followed by urology as outpatient. I have messaged our outpatient urology team. Additionally I have left a message for his primary care physician, Dr. Valencia with [facility] and requested urology referral to [facility] on behalf of the patient per the patient's request. received return phone call from Dr Valencia's office who states that I can indeed refer to urology for outpatient crockett management. Dr Valencia is patient's [place] PCP. He has been a patient of Dr Valencia's for many many years. (3) Orthostatic hypotension: Resolved. He has been normotensive today. He is on a small dose of lisinopril at home. I discussed this with his today. I think I would prefer that he be slightly hypertensive through this period of recovery at home then hypotensive and falling. For this reason I am recommending holding his 5 mg of lisinopril every day on discharge to home and following up with primary care to consider restart at a later date. (4) Hypertension: Lisinopril 5mg daily at home. holding this post operatively, has not been hypertensive. Please see above ALLERGIES Allergies Allergy/AdvReac Type Severity Reaction Status Date / Time No Known Drug Allergies Allergy Verified 08/10/24 12:36 MEDICATIONS Ambulatory Orders Medication Instructions Recorded Confirmed multivitamin (Daily Multi-Vitamin 1 tab PO DAILY 08/10/24 08/10/24 tablet) acetaminophen 500 mg tablet 1,000 mg (2 x 500 mg) PO TID #60 08/14/24 tabs aspirin 81 mg tablet,delayed 81 mg PO BID #90 tabs 08/14/24 release calcium carbonate 500 mg (2.5 x 200 mg calcium (500 08/14/24 mg)) PO BID #90 tabs cholecalciferol (vitamin D3) 10 400 unit PO DAILY #30 tabs 08/14/24 mcg (400 unit) tablet (Vitamin D3) famotidine 20 mg tablet 40 mg (2 x 20 mg) PO DAILY #180 08/14/24 tabs oxycodone 5 mg tablet 2.5 mg (1/2 x 5 mg) PO Q4HR PRN 08/14/24 pain #15 tabs oxycodone 5 mg tablet 2.5 mg (1/2 x 5 mg) PO Q6HR PRN 08/14/24 Severe Breakthrough pain(8-10) #15 tabs PHYSICAL EXAM AT DISCHARGE Physical Exam Other/Comments: General Appearance: positive No acute distress and Alert Eyes Bilateral: positive Conjunctivae nml ENT: positive ENT inspection nml Neck: positive Nml inspection Respiratory: positive No respiratory distress and Breath sounds nml Cardiovascular: positive Regular rate & rhythm Abdomen: positive No distention Skin: positive Color nml Extremities: positive Other (dressing at left hip is intact without strike through) Neurologic/Psychiatric: positive Oriented x3 LABS 08/14/24 06:07 08/14/24 06:07 FOLLOW UP Follow Up: PCP Dr Valencia, for routine care and followup of his hypertension. Ortho Dr Maciel, s/p L hip hemiarthroplasty Urology, Dr Najera for urinary retention and catheter management. TIME SPENT Time Spent in Discharge (Minutes): 40 Discharge Plan Discharge Patient Disposition: Home Health Service Condition: Good Medically Cleared Comments:: stable Prescriptions: New acetaminophen 500 mg Tablet 1,000 mg PO TID Qty: 60 0RF aspirin 81 mg Tablet,Delayed Release (Dr/Ec) 81 mg PO BID Qty: 90 0RF calcium carbonate 200 mg calcium (500 mg) Tablet,Chewable 500 mg PO BID Qty: 90 0RF cholecalciferol (vitamin D3) [Vitamin D3] 10 mcg (400 unit) Tablet 400 unit PO DAILY Qty: 30 0RF famotidine 20 mg Tablet 40 mg PO DAILY Qty: 180 0RF oxycodone 5 mg Tablet 2.5 mg PO Q6HR PRN (Reason: Severe Breakthrough pain(8-10)) Qty: 15 0RF oxycodone 5 mg tablet 2.5 mg PO Q4HR PRN (Reason: pain) Qty: 15 0RF Continued multivitamin [Daily Multi-Vitamin] Tablet 1 tab PO DAILY Discontinued lisinopril 5 mg tablet 5 mg PO DAILY Activity Restrictions/Additional Instructions: You had a left hip hemiarthroplasty on 08/12/[address] Maciel at [facility]. ACTIVITY INSTRUCTIONS * You are weight bearing as tolerated to the left lower extremity with a front wheeled walker at all times. * Do not cross your legs and turn the toes inward. Follow the instructions of physical therapy with leg precautions. This would increase your risk of dislocating the hip. * You must be cleared by your orthopedic provider before operating a vehicle. * Follow up with Dr Najera for Crockett care and urinary monitoring DRESSING CARE * You have a mepilex dressing on the left hip. This is a water proof dressing that you can shower with in place. Leave the dressing in place until your follow up visit in clinic. * There are no sutures or david to be removed * If you notice fever, chills, redness, excessive drainage or bleeding, a sharp increase in pain that persists after taking pain medication, pain in your calf muscles, chest pain or trouble breathing please unwrap the dressing and investigate. Then call the office with findings for further guidance. If it is after regular clinic hours, please seek care in the emergency department. * In the rare case of any severe chest pain and trouble breathing, seek immediate care, do not delay for a call to the clinic. * Ice the left hip as needed MEDICATIONS * Take three pills of 325 mg Tylenol (acetaminophen) every 8 hours regardless of pain in a scheduled manner. Do not exceed 3000 mg of Tylenol (from ALL sources, including over the counter combination products) in a 24-hour period due to risk of liver injury. * Take one pill of 2.5 mg oxycodone by mouth as needed for break through pain stronger than 7 out of 10 on a pain scale. Take this for severe pain 1 hour after taking the scheduled Tylenol and ibuprofen. Do not exceed 4 tablets in a 24-hour period. * Take 200 mg of Colace by mouth every 12 hours for constipation. Narcotic medications such as oxycodone may increase your risk of constipation after surgery. * Take 4 mg of Zofran by mouth every 6 hours as needed for uncontrolled nausea or vomiting. If you have persistent nausea and vomiting call our office or seek care in the emergency department. * Take one pill of 81 mg of aspirin two times daily 12 hours apart for 6 weeks for blood clot prevention. * Resume all ofyour normal home medications unless specified otherwise by your surgeon tomorrow morning. Diet: Regular Health Concerns: You are an 89-year-old gentleman who slipped on the ice over a week ago and fell and broke your hip. It took a little bit of time to get the diagnosis, but you ended up needing surgery on your hip. What you had was basically a half of a hip replacement. You have a new hip! You did not want to go to a intermediate facility for rehab. You wanted to go home with your and family. To care for this new hip you have to let the muscles around the joint heal. For this reason you need to not externally rotate your hip. This means that you should not cross your legs. You should not cross your left leg over your right leg. You also should be careful not to bend down and pick something up on the right side of your body. You should use a walker when you are up and moving. Until you are cleared by home health physical therapy. We are ordering home health for physical therapy, Occupational Therapy, home health aide as well as an RN to come in and check out your blood pressure. Before surgery you had a problem with what we call urinary retention. This means that you had difficulty urinating. We have decided that we will leave the catheter in place for about 2 weeks. I have spoken with Dr. Valencia's office in [place] at [facility]. They tell me that I can refer directly to Dr. Najera who is our urologist [facility] with [facility]. I have contacted his office and I will also send him a copy of these instructions. During surgery you did lose some blood and you are slightly anemic because of it. I want you to take iron supplements [id number], with food. Usually something acidic is best to take with iron as it helps your body absorb it. It can cause constipation so make sure to eat lots of fresh fruits and vegetables and drink plenty of water. I have given you IV iron before leaving the hospital just to help to give you an extra boost. Additionally you should continue multivitamins at home as they have B vitamins which also help you build red blood cells. For pain after surgery I would definitely recommend that you take Tylenol. In addition to this I have prescribed some oxycodone and sent that to the community pharmacy. If your hip is really hurting it is okay to take this but remember that it can make you unsteady on your feet. It can also cause constipation and confusion. Additionally after surgery I want you to take calcium in the form of Tums twice a day, as well as vitamin D. Both of these things are supplements that aid in bone healing. For prevention of blood clots after surgery you should take one 80 mg aspirin twice a day for 42 days. I would recommend taking this with food as it is not a completely benign medicine and can be irritating to your stomach. You will also be get getting contacted by the orthopedic surgeons office. They will want to see you in follow-up to check your wound and make sure you are doing well. They are located right here in [place] as well. Care Plan Goals: To return to your previous level of function. Take walks with your . To have your hip pain controlled. Plan of Treatment: Home health referral for rehabilitation. Print Language: Persian Patient Instructions: Surgery Anesthesia After Follow-up Care: Mylene Valencia MD [Primary Care Provider] -"
[2024-08-14] MEDS: FERRIC GLUCONATE 125 MG in SODIUM CHLORIDE 0.9% 100ML 100 ML IV ONE (12:46)
[2024-08-14] MEDS: SODIUM CHLORIDE FLUSH 0.9% 10 ML SYRINGE IVP PRN (12:46)
[2024-08-14 14:09] VITALS: BP 140/59; TEMP 98.6
== END 2024-08-14 14:52 | disposition home health service (06) | DRG 522 ==
LOC: MS2 12:27 → ED 12:27 → MS2 14:35
PROVIDERS: ADMIT Nurse Practitioner Acute Care; ATTEND Nurse Practitioner Acute Care
PROC: HEMIHIP (2024-08-11 14:30)
DX: D62 Acute posthemorrhagic anemia; Z87.891 Personal history of nicotine dependence; S72.012A Unspecified intracapsular fracture of left femur, initial encounter for closed fracture; I95.1 Orthostatic hypotension; Z79.899 Other long term (current) drug therapy; I10 Essential (primary) hypertension; W00.0XXA Fall on same level due to ice and snow, initial encounter; R33.9 Retention of urine, unspecified; S72.002A Fracture of unspecified part of neck of left femur, initial encounter for closed fracture; M16.12 Unilateral primary osteoarthritis, left hip